=== PATIENT | male | born 1985 | race Caucasian/White ===

== ENCOUNTER 2017-12-28 10:54 | Inpatient (IN) | payer OTHER ==
[2017-12-24 16:01] VITALS: BMI 22.6
[2017-12-28] MEDS ORDERED: ROCURONIUM BROMIDE 50 MG/5 ML VIAL ONE ×2 (15:59)
[2017-12-28] MEDS ORDERED: PROPOFOL 20 ML ONE ×10 (15:59)
[2017-12-28] MEDS ORDERED: MIDAZOLAM HCL 2 MG/2 ML SINGLE DOSE VIAL ONE (15:59)
[2017-12-28] MEDS ORDERED: fentaNYL CITRATE 250 MCG/5 ML VIAL ONE ×3 (16:00→20:20)
[2017-12-28] MEDS ORDERED: ceFAZolin SODIUM 1 GM VIAL IVPB ONE ×2 (16:45→17:30)
[2017-12-28] MEDS ORDERED: VANCOMYCIN 1,000 MG VIAL (RESTRICTED TO ID ONLY) IVPB ONE (16:45)
[2017-12-28] MEDS ORDERED: BENZOIN/ALOE VERA/STORAX/TOLU 58 ML BOTTLE ONE (16:51)
[2017-12-28] MEDS ORDERED: TRANEXAMIC ACID 1000 MG/10 ML VIAL ONE ×3 (16:56→17:47)
[2017-12-28] MEDS ORDERED: THROMBIN (BOVINE) 5,000 UNIT VIAL TP ONE (17:35)
[2017-12-28] MEDS ORDERED: HEPARIN NA (PORCINE) 5,000 UNITS/ML 1ML VIAL ONE (17:35)
[2017-12-28] MEDS ORDERED: DEXAMETHASONE SOD PHOSPHATE 4 MG/1 ML VIAL ONE (18:33)
[2017-12-28] MEDS ORDERED: KETOROLAC TROMETHAMINE 30 MG/1 ML VIAL ONE (18:33)
[2017-12-28] MEDS ORDERED: ONDANSETRON 4 MG/2 ML VIAL ONE (18:33)
[2017-12-28] MEDS ORDERED: DESFLURANE GAS 240 ML BOTTLE IH ONE (19:45)
[2017-12-28] MEDS ORDERED: NEOSTIGMINE METHYLSULFATE 0.5 MG/ML - 10 ML MDV ONE (20:18)
[2017-12-28] MEDS ORDERED: GLYCOPYRROLATE 0.2 MG/1 ML VIAL ONE (20:18)
--- NOTE | 2017-12-28 20:56 | PN ---
Progress Note (short form) - Note Progress Note: 32M s/p L4, L5, S1 laminectomies, L4-5 & L5-S1 PLIF, L4-S1 PISF POD #0. -Admit to ICU post-op. -Pain control: WAREDRESSER; per anaesthesia team. -Mechanical DVT PPx. only: NELSY's, SCD's. -Incentive spirometry; aggressive pulmonary toilet. -PT/OT/Rehab, OOB. -WBAT B/L LE. -f/u drain output. -d/c Lira catheter when ambulating. -NPO until flatus. -Toshia-op abx X 24 hrs.: Ancef, Vanc. -Admit to care of medical hospitalist team. -Will follow. Asad Wilkinson MD (Orthopaedic Surgery).
[2017-12-28] MEDS ORDERED: ONDANSETRON 4 MG/2 ML VIAL IVPUSH PRN ×2 (20:57→21:13)
[2017-12-28] MEDS ORDERED: diazePAM CARPU-JECT 10 MG/2 ML DISP.SYRIN IVPUSH PRN (20:57)
[2017-12-28] MEDS ORDERED: LACTATED RINGERS SOLUTION 1,000 ML IV SCH (21:00)
--- NOTE | 2017-12-28 21:12 | OP ---
Operative Note - Note: Operative Date: 12/28/17 Pre-Operative Diagnosis: L4-L5, L5-S1 spinal stenosis Operation: 1. L4, L5, S1 laminectomies. 2. L4-L5, L5-S1 PLIF. 3. L4-L5, L5-S1 PISF Post-Operative Diagnosis: Same as Pre-op Surgeon: Hollis Wilkinson Medical Claims Examiner: Asad Wilkinson (Co-Surgeon) Anesthesiologist/SIDE DOOR WORKER: Davy Garza Anesthesia: General Specimens Removed: Bone, soft tissue, disc Estimated Blood Loss (mls): 1,200 Drains & Tubes with Location: 1 x superficial HemoVac Blood Volume Replaced (mls): 450 (Cell Saver) Fluid Volume Replaced (mls): 2,300 (Crystalloid) Operative Report Dictated: Yes
[2017-12-28] MEDS ORDERED: oxyCODONE HCL 5 MG TABLET PO PRN (21:13)
--- NOTE | 2017-12-28 21:16 | PN ---
Teaching Attending Note Name of Resident: Liv Orr ATTENDING PHYSICIAN STATEMENT I saw and evaluated the patient. I reviewed the resident's note and discussed the case with the resident. I agree with the resident's findings and plan as documented. SUBJECTIVE: 32 yo M with pmhx childhood Asthma of who presented for L4, L5, S1, Laminectomies, L4-L5 , L5-S1 PLIF, L5-S1 PISF. Pt. States post-sx he feels ok. Denies any current pain. Able to feel and move his feet/legs. Has not had flatus yet. Denies any Nause, vomiting, or diarrhea. No chest pain, pressure or shortness of breath. OBJECTIVE: Physical: VS: Vital Signs Period Temp Pulse Resp BP Sys/Piedra Pulse Ox Last 24 Hr 98.0 F 59 16 105/69 99 GEN: NAD, Resting in bed, AA0X3 HEENT: NCAT, PERRL, Throat without erythema or exudates CARD: RRR S1, S2 RESP: CTAN ABD: BSx4, NTD to palpation EXT:- C/C/E LABS- PENDING EKG: ASSESSMENT AND PLAN: 32 yo M with Pmhx of 1.) L4, L5, S1 laminectomies. 2. L4-L5, L5-S1 PLIF. 3. L4-L5, L5-S1 PISF POD # 0 - NPO until Flatus - Avoid NSAIDS - Lira, until mobilized - Pain Mngt per Anesthesia - Check CMP, CBC - Abx per Sx 2.) Dvt Ppx - SCDS only for 72 hrs Accepted to ICU CC Time 35 minutes
--- NOTE | 2017-12-28 21:21 | OP ---
DATE OF OPERATION: 12/28/2017 SURGEON: Hollis Wilkinson MD CO-SURGEON: Asad Wilkinson MD PREOPERATIVE DIAGNOSES: L4-L5, L5-S1 disk prolapse disease with stenosis and segmental instability. POSTOPERATIVE DIAGNOSES: L4-L5, L5-S1 disk prolapse disease with stenosis and segmental instability. OPERATION PERFORMED: 1. Laminectomy, L4-L5. 2. Undercutting facetectomy, L4-L5. 3. Anderson-Chung osteotomy, L3, L4, L5. 4. Posterior lumbar interbody fusion, L4-L5, L5-S1. 5. Pedicle screw instrumentation, L4, L5, S1. 6. Posterolateral arthrodesis, L4, L5, S1. 7. Use of bone marrow concentrate combined with autologous and allograft bone. 8. Use of intraoperative fluoroscopy and intraoperative neuromonitoring. 9. Complex wound closure, 15 cm. ANESTHESIA: General. ANTIBIOTICS GIVEN: 1 g vancomycin preoperatively, 1 g Kefzol given intraoperatively. PROCEDURE: The patient was correctly identified, brought in the operating room. The lumbar spine was prepped and window-draped in the lumbar spine. Prepping was with Betadine scrub solution and wiped off with alcohol and DuraPrep applied. Lateral fluoroscopic x-ray verified the position of the skin incision. Midline incision was utilized. The skin was opened appropriately. The dissection was taken to the tip of the spinous process of L3 to S1. Subperiosteal dissection performed, exposing the lamina over the facet joints out to the tip of the transverse processes both left and right and side of L4, L5, S1; the ala of the sacrum being exposed clearly. The lamina of L4 and L5 were resected using Leksell rongeurs and Kerrison upcuts. The lateral wall of the vertebral canal was imploded inwards. This brought about complete freeing and wide decompression of the L4, L5, S1 nerve roots completely, both left and right and side. This component of the operation was performed by Asad Wilkinson. The posterior lumbar interbody fusion of L4-L5, L5-S1 were performed by Hollis Wilkinson and this consisted of the following: Retraction of the theca after dealing with the epidural veins with bipolar Bovie, retracting the theca from [id number], exposing appropriately these elements. Once this had been performed, the disks were resected completely using leona as well as serrated curettes and pituitary rongeurs and excising the annulus appropriately on the right-hand side. The interbody spacers were packed with autologous bone graft. This was graft milled from all elements posteriorly that had been removed; these were the laminae. The cages measured size 9 at L5- S1 and size 11 at L4-L5. These were TETRAfuse cages. Solid fixation was achieved. Verification with lateral fluoroscopic x-ray revealed excellent reconstitution of disk heights. Each disk space was now packed with bone graft as well as the appropriate cage. Pedicle screws of L4, L5, S1 were performed. This was with the use of drilling each pedicle with 4.5 drill bit. Each drill hole was tested with a ball-tip feeler probe. Each screw was inserted, measuring 40 x 6.5, and each screw tested with intraoperative neuromonitoring and found to be well-above safety parameters usually performed; that is well-above 15 mA at each screw. Rods were contoured and appropriately affixed solidly into position with the appropriate torque device tightening the device onto the screw heads. The posterolateral arthrodesis was completed by placing bone in the transverse plane from L4, L5, S1. This was bone mixed with CD-34 cells, which is from bone marrow aspirate concentrate from the left posterior ilium, 60 mL having been harvested and spun down for the CD-34 cells. A Anderson-Chung osteotomy at L4-L5 facilitated the maintenance of lordosis. No complications. The wounds were thoroughly lavaged. A complex wound closure with muscle 1 Vicryl, fascia 1 Vicryl, subcutaneous 1 and 2-0 Vicryl in separate layers, and then 3-0 Monocryl and Steri-Strips to the wound. Blood loss was approximately 1 L; 500 mL of blood was given back with IV Cell Saver. Patient transferred to the ICU. MD BRO Payne/[id number] MTDD
[2017-12-28] MEDS ORDERED: HYDROmorphone *PCA* 6MG/30ML DISP.SYRIN PCA ONE (21:30)
--- NOTE | 2017-12-28 21:42 | HP ---
CHIEF COMPLAINT: back pain PCP: HISTORY OF PRESENT ILLNESS: 32 yo M with significant PMHx of asthma as a child presents for spinal surgery. He is POD#0 s/p laminectomy and spinal fusion. He was injured at work and has made decision to undergo surgery with Dr. Wilkinson. Denies CP,CHÁVEZ, SOB, abdominal pain, nausea or vomiting. Recent Travel: Denies PAST MEDICAL HISTORY:childhood asthma PAST SURGICAL HISTORY:tonsillectomy Social History: Smoking:current smoker 7 cigs/day with 5pack year history. Alcohol:Denies Drugs: frequent smoker of marijuana Family History: Allergies No Known Allergies Allergy (Verified 12/24/17 16:01) HOME MEDICATIONS: Home Medications Medication Instructions Recorded Diazepam [Valium] 5 mg PO HS 12/24/17 Oxycodone HCl/Acetaminophen 1 each PO Q4H PRN 12/24/17 [Percocet 10-325 mg Tablet] REVIEW OF SYSTEMS CONSTITUTIONAL: Absent: fever, chills, diaphoresis, generalized weakness, malaise, loss of appetite, weight change HEENT: Absent: rhinorrhea, nasal congestion, throat pain, throat swelling, difficulty swallowing, mouth swelling, ear pain, eye pain, visual changes CARDIOVASCULAR: Absent: chest pain, syncope, palpitations, irregular heart rate, lightheadedness , peripheral edema RESPIRATORY: Absent: cough, shortness of breath, dyspnea with exertion, orthopnea, wheezing, stridor, hemoptysis GASTROINTESTINAL: Absent: abdominal pain, abdominal distension, nausea, vomiting, diarrhea, constipation, melena, hematochezia GENITOURINARY: Absent: dysuria, frequency, urgency, hesitancy, hematuria, flank pain, genital pain MUSCULOSKELETAL: +back pain Absent: myalgia, arthralgia, joint swelling, neck pain SKIN: Absent: rash, itching, pallor HEMATOLOGIC/IMMUNOLOGIC: Absent: easy bleeding, easy bruising, lymphadenopathy, frequent infections ENDOCRINE: Absent: unexplained weight gain, unexplained weight loss, heat intolerance, cold intolerance NEUROLOGIC: Absent: headache, focal weakness or paresthesias, dizziness, unsteady gait, seizure, mental status changes, bladder or bowel incontinence PSYCHIATRIC: Absent: anxiety, depression, suicidal or homicidal ideation, hallucinations. PHYSICAL EXAMINATION Vital Signs - 24 hr 12/28/17 12/28/17 11:32 11:33 Temperature 98.0 F Pulse Rate 59 L Respiratory 16 Rate Blood Pressure 105/69 O2 Sat by Pulse 99 Oximetry (%) GENERAL: AAOx3, NAD HEAD: NC/AT EYES: PERLLA, EOMI, anicteric sclera. EARS, NOSE, THROAT: Moist mucous membranes. NECK: supple, No jvd LUNGS: CTAB, No wheezing or rales. HEART: RRR, NL S1S2, No M/G/R ABDOMEN: Soft, NT/ND, NL BS LOWER EXTREMITIES: 2+ pulses, warm, well-perfused. No calf tenderness. No peripheral edema. NEUROLOGICAL: Cranial nerves II-XII intact. Normal speech. Bilateral LE neurovascularly intact. PSYCHIATRIC: Cooperative. Good eye contact. Appropriate mood and affect. SKIN: surgical site bandage appears clean, dry and intact. Connor drain w/ small amount of sanguineous drainage. Laboratory Results - last 24 hr 12/28/17 12/28/17 11:08 12:28 Blood Type O POSITIVE O POSITIVE Antibody Screen Negative ASSESSMENT/PLAN: 32M POD #0 s/p L4, L5, S1 laminectomies, L4-5 & L5-S1 PLIF, L4-S1 PISF admitted to ICU. Problem List - Problem (1) S/P laminectomy with spinal fusion Assessment/Plan: L4, L5, S1 laminectomies, L4-5 & L5-S1 PLIF, L4-S1 PISF * Admit to ICU post-op. * Pain control: SYNTHETIC FILAMENT SPINNER; per anaesthesia team. * Mechanical DVT PPx. only: NELSY's, SCD's. * Incentive spirometry; aggressive pulmonary toilet. * PT/OT/Rehab, OOB. * WBAT B/L LE. * f/u drain output. * d/c Lira catheter when ambulating. * NPO until flatus. * Toshia-op abx X 24 hrs.: Anya Lowery. Visit type - Emergency Visit Emergency Visit: Yes ED Registration Date: 12/28/17 Care time: The patient presented to the Emergency Department on the above date and was hospitalized for further evaluation of their emergent condition. - New Patient This patient is new to me today: Yes Date on this admission: 12/29/17 - Critical Care Critical Care patient: Yes Total Critical Care Time (in minutes): 33 Critical Care Statement: The care of this patient involved high complexity decision making to prevent further life threatening deterioration of the patient 's condition and/or to evaluate & treat vital organ system(s) failure or risk of failure. Hospitalist Screening - Colonoscopy Questionnaire Colonoscopy Questionnaire: Colonoscopy Questionnaire - Patient: 50 - 75 years old and never had a screening colonoscopy: No History of colon or rectal polyps, or CA: No History of IBD, Crohn's disease or UC: No History of abdominal radiation therapy as a child: No - Relative: 1 with colon or rectal CA, or polyps at age 60 or younger: No Colon or rectal CA diagnosed at age 45 or younger: No Multiple relatives with colon or rectal CA: No - Outcome: Screening Result: Negative Screen
[2017-12-28] MEDS ORDERED: ACETAMINOPHEN INJECTION 100 ML IVPB ONE (21:44)
[2017-12-28] MEDS: ACETAMINOPHEN 1000 MG/100 ML VIAL (NON FORMULARY) IVPB SCH (21:45)
[2017-12-28] MEDS ORDERED: MEPERIDINE HCL CARPU-JECT 25 MG/1 ML DISP.SYRIN IM ONE (21:56)
[2017-12-28] MEDS: LACTATED RINGERS SOLUTION 1,000 ML IV SCH (22:00)
[2017-12-28] MEDS: HYDROmorphone *PCA* 10MG/50ML DISP.SYRIN PCA SCH (22:00)
--- NOTE | 2017-12-28 23:03 | CONSULT ---
Consult Consult Specialty:: Pulm/CCM Reason for Consultation:: L4-s1 decompression and fusion. - History of Present Illness Chief Complaint: back pain History of Present Illness: This is a 32 yo man active tobacco w/ Asthma, lower back pain w/ right sided numbness now POD #0: L4-s1 decompression and fusion. Transferred to the ICU Post operatively. In the ICU he is awake and alert denies: CHÁVEZ/CP/SOB/n/v/ numbness mild pain at surgical site. On exam [place] drain w/ small amount of sanguineous drainage noted. - History Source History Provided By: Patient Limitations to Obtaining History: No Limitations - Past Medical History Pulmonary: Yes: Asthma (childhood ) Psych: Yes: Depression Musculoskeletal: Yes: Chronic low back pain - Alcohol/Substance Use Hx Alcohol Use: No - Smoking History Smoking history: Current every day smoker (1/3 of a pack per day) Aproximately how many cigarettes per day: 8 Home Medications - Allergies Allergies/Adverse Reactions: Allergies Allergy/AdvReac Type Severity Reaction Status Date / Time No Known Allergies Allergy Verified 12/24/17 16:01 - Home Medications Home Medications: Ambulatory Orders Diazepam [Valium] 5 mg PO HS 12/24/17 Oxycodone HCl/Acetaminophen [Percocet 10-325 mg Tablet] 1 each PO Q4H PRN Family Disease History - Family Disease History Family History: Unremarkable Review of Systems - Review of Systems Constitutional: reports: No Symptoms Cardiovascular: reports: No Symptoms Respiratory: reports: No Symptoms Musculoskeletal: reports: Back Pain Physical Exam Vital Signs: Vital Signs Temperature 98.7 F 12/28/17 21:11 Pulse Rate 59 L 12/28/17 22:15 Respiratory Rate 11 L 12/28/17 22:15 Blood Pressure 106/56 12/28/17 22:15 O2 Sat by Pulse Oximetry (%) 100 12/28/17 22:15 Constitutional: Yes: Well Nourished, No Distress, Calm Eyes: Yes: EOM Intact HENT: Yes: Normocephalic Cardiovascular: Yes: Regular Rate and Rhythm, S1, S2 Respiratory: Yes: CTA Bilaterally Gastrointestinal: Yes: Normal Bowel Sounds, Soft Musculoskeletal: Yes: Other (Connor drain in place small sang drainage) Edema: No Wound/Incision: Yes: Clean/Dry Neurological: Yes: Alert, Oriented Psychiatric: Yes: Alert, Oriented Labs: No labs Problem List - Problems (1) S/P laminectomy with spinal fusion Code(s): Z98.1 - ARTHRODESIS STATUS (2) Asthma Code(s): J45.909 - UNSPECIFIED ASTHMA, UNCOMPLICATED Assessment/Plan a/p: 32yo man w/ asthma, depression lower back pain w/ numbness on right side now POD #0: L4, L5, S1 laminectomy -pain control -anxiolisis prn -bowel regimen -advance activity per surgery -NPO until flatus -02 for sat >90% -nicoderm patch -Albuterol prn -Incentive spirometry -early PT/OT -trend Hgb post op w/ normal transfusion thresholds -monitor surgical drainage -glucose control -SCD for DVT prophylaxis until chemoprophylaxis ok by surgery Carin RIZO Pulm/CCM CCT: 35m
[2017-12-28] MEDS: CEFAZOLIN 1 GM/D5W 1 GM/50 ML BAG IVPB SCH (23:31)
[2017-12-29] MEDS ORDERED: LORazepam 2 MG/ML SDV VIAL IVPUSH PRN (02:08)
[2017-12-29] MEDS ORDERED: LORazepam 2 MG/ML SDV VIAL IVPUSH ONE (02:15)
[2017-12-29] MEDS: ACETAMINOPHEN 1000 MG/100 ML VIAL (NON FORMULARY) IVPB SCH (04:08)
[2017-12-29] MEDS ORDERED: VANCOMYCIN 1 GRAM (PRE-DOCKED) 1,000 MG/250 ML BAG IVPB ONE (05:00)
[2017-12-29] MEDS ORDERED: VANCOMYCIN 1,000 MG in DEXTROSE 5%-WATER - 250 ML IVPB ONE (05:00)
[2017-12-29] MEDS: CEFAZOLIN 1 GM/D5W 1 GM/50 ML BAG IVPB SCH (06:47)
[2017-12-29] MEDS ORDERED: HYDROmorphone *PCA* 6MG/30ML DISP.SYRIN PCA ONE (06:58)
[2017-12-29] MEDS: HYDROmorphone *PCA* 10MG/50ML DISP.SYRIN PCA SCH ×2 (07:03→21:36)
[2017-12-29 07:07] LABS: HEMATOCRIT 35.3 % (35.4-49); MEAN CELL VOLUME 88.1 fl (80-96); MEAN PLT VOLUME 7.6 fl (7.5-11.1); PLATELET COUNT 242 K/MM3 (134-434); RBC 4.01 M/mm3 (4.00-5.60); WHITE BLOOD COUNT 17.3 K/mm3 (4.0-10.0)
[2017-12-29 07:20] LABS: CHLORIDE 102 mmol/L (98-107); POTASSIUM 4.5 mmol/L (3.5-5.1); SODIUM 140 mmol/L (136-145)
[2017-12-29 07:25] LABS: ANION GAP 9 (8-16); BLOOD UREA NITROGEN 12 mg/dL (7-18); CALCIUM 8.2 mg/dL (8.5-10.1); CO2 29 mmol/L (21-32); CREATININE 0.6 mg/dL (0.7-1.3); GLUCOSE,RANDOM 129 mg/dL (74-106)
[2017-12-29] MEDS: NICOTINE 14 MG/24 HOURS TOPICAL PATCH TD SCH (11:38)
--- NOTE | 2017-12-29 12:09 | PN ---
Teaching Attending Note Name of Resident: Jamshid Encinas ATTENDING PHYSICIAN STATEMENT I saw and evaluated the patient. I reviewed the resident's note and discussed the case with the resident. I agree with the resident's findings and plan as documented. SUBJECTIVE: Pt seen and examined in the ICU. States pain controlled. No chest pain or shortness of breath. No nausea or vomiting. No flatus or bowel movements. OBJECTIVE: Last Vital Signs Temp Pulse Resp BP Pulse Ox 99.2 F 58 L 16 112/66 100 12/29/17 10:00 12/29/17 11:59 12/29/17 11:59 12/29/17 11:59 12/29/17 09:00 Intake & Output 12/26/17 12/27/17 12/28/17 12/29/17 23:59 23:59 23:59 23:59 Intake Total 1000 950 Output Total 1900 400 Balance -900 550 Weight 64.212 kg Gen: NAD at rest Heart: RRR Lung: decreased breath sounds at the bases Abd: soft, nontender Ext: no edema CBC, BMP 12/29/17 06:13 12/29/17 06:13 Active Medications Hydromorphone HCl (Dilaudid Information Systems Professor -) 10 mg HERB DOCTOR HERB DOCTOR KAMI PRN Reason: Protocol Stop: 01/04/18 21:29 Last Admin: 12/29/17 07:03 Dose: 10 mg Lactated Ringer's (Lactated Ringers Solution) 1,000 mls @ 75 mls/hr IV ASDIR [facility] Last Admin: 12/28/17 22:00 Dose: 50 mls Nicotine (Nicoderm Patch -) 14 mg TD DAILY [facility] Last Admin: 12/29/17 11:38 Dose: 14 mg Ondansetron HCl (Zofran Injection) 4 mg IVPUSH Q6H PRN PRN Reason: NAUSEA AND/OR VOMITING Last Admin: 12/29/17 11:38 Dose: 4 mg Ondansetron HCl (Zofran Injection) 4 mg IVPUSH Q6H PRN PRN Reason: NAUSEA AND/OR VOMITING Oxycodone HCl (Roxicodone -) 10 mg PO Q4H PRN PRN Reason: PAIN LEVEL 6-10 Stop: 12/29/17 21:12 Last Admin: 12/29/17 09:17 Dose: 10 mg Promethazine HCl (Phenergan Injection -) 12.5 mg IVPUSH Q6H PRN PRN Reason: NAUSEA-FOR RESCUE AFTER 15 MIN Senna (Senna -) 1 tab PO HS KAMI ASSESSMENT AND PLAN: Lumbar Spinal Stenosis s/p L4-S1 Laminectomies/Fusions Asthma Smoker - pain control - incentive spirometry - bowel regimen - rehab/PT - monitor drain output - monitor H/H - activity/dennis/PO per surgery - mechanical DVT prophylaxis
--- NOTE | 2017-12-29 13:05 | PN ---
Physical Exam: SUBJECTIVE: Patient seen and examined No acute events overnight. 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 He denies chest pain, SOB, abdominal pain, n/v, and passing flatus. OBJECTIVE: Vital Signs Period Temp Pulse Resp BP Sys/Piedra Pulse Ox Last 24 Hr 98.1 F-99.2 F 54-83 10-17 90-129/55-98 95-100 GENERAL: The patient is awake, alert, and fully oriented, in no acute distress. HEENT: NC, AT LUNGS: Breath sounds equal, clear to auscultation bilaterally, no wheezes, no crackles, no accessory muscle use. HEART: Regular rate and rhythm, S1, S2 without murmur, rub or gallop. ABDOMEN: Soft, nontender, nondistended, normoactive bowel sounds, no guarding, no rebound, no hepatosplenomegaly, no masses. EXTREMITIES: 2+ pulses, warm, well-perfused, no edema. NEUROLOGICAL: CN 2-12 intact, sensory function in b/l LE intact, strength difficult to assess in legs due to pain Laboratory Results - last 24 hr 12/28/17 12/29/17 12/29/17 12:28 06:13 06:13 WBC 17.3 H RBC 4.01 Hgb 12.0 Hct 35.3 L MCV 88.1 MCH 30.0 MCHC 34.0 RDW 13.0 Plt Count 242 MPV 7.6 Sodium 140 Potassium 4.5 Chloride 102 Carbon Dioxide 29 Anion Gap 9 BUN 12 Creatinine 0.6 L Random Glucose 129 H Calcium 8.2 L Blood Type O POSITIVE Active Medications Generic Name Dose Route Start Last Admin Trade Name Freq PRN Reason Stop Dose Admin Hydromorphone HCl 10 mg 12/28/17 21:30 12/29/17 07:03 Dilaudid Taxi Proprietor - NURSES' AIDE 01/04/18 21:29 10 mg NURSES' AIDE KAMI Administration Protocol Lactated Ringer's 1,000 mls @ 75 mls/hr 12/28/17 21:15 12/28/17 22:00 Lactated Ringers Solution IV 50 mls ASDIR KAMI Administration Nicotine 14 mg 12/29/17 10:00 12/29/17 11:38 Nicoderm Patch - TD 14 mg DAILY KAMI Administration Ondansetron HCl 4 mg 12/28/17 20:57 12/29/17 11:38 Zofran Injection IVPUSH 4 mg Q6H PRN Administration NAUSEA AND/OR VOMITING Ondansetron HCl 4 mg 12/28/17 21:13 Zofran Injection IVPUSH Q6H PRN NAUSEA AND/OR VOMITING Oxycodone HCl 10 mg 12/28/17 21:13 12/29/17 09:17 Roxicodone - PO 12/29/17 21:12 10 mg Q4H PRN Administration PAIN LEVEL 6-10 Promethazine HCl 12.5 mg 12/28/17 21:13 Phenergan Injection - IVPUSH Q6H PRN NAUSEA-FOR RESCUE AFTER 15 MIN Senna 1 tab 12/29/17 22:00 Senna - PO HS [facility] [place] ASSESSMENT/PLAN: 32M w/ hx of asthma and back pain, now POD #1 s/p L4, L5, S1 laminectomies, L4- 5 & L5-S1 PLIF, L4-S1 PISF. Neuro #s/p laminectomies -pain control: NURSES' AIDE and oxycodone PRN -ancef and vanc for 24hrs -incentive spirometer -OOB as tolerated -PT -monitor daniel drain output -d/c dennis once ambulating -NPO until passing flatus -phenergan and zofran PRN GI -senna Psych #tobacco use -nicotine patch FEN/ppx -LR @ 75 -electrolytes wnl -NPO until passing flatus -no GI ppx -SCDs Case discussed with attending, Dr. Courtney. -Jamshid Encinas MD PGY1 ICU Team Visit type - Emergency Visit Emergency Visit: Yes ED Registration Date: 12/28/17 Care time: The patient presented to the Emergency Department on the above date and was hospitalized for further evaluation of their emergent condition. - New Patient This patient is new to me today: Yes Date on this admission: 12/29/17 - Critical Care Critical Care patient: Yes Total Critical Care Time (in minutes): 35 Critical Care Statement: The care of this patient involved high complexity decision making to prevent further life threatening deterioration of the patient 's condition and/or to evaluate & treat vital organ system(s) failure or risk of failure.
--- NOTE | 2017-12-29 14:48 | PN ---
Progress Note (short form) - Note Progress Note: Post op day#1.S/p L4-L5 Posterior decompression with instrumentation and fusion under GA uneventful.P76,BP 108/73 and Spo2 98% on RA.Patient stable and and Neurontin and will f/u tomorrow. 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
--- NOTE | 2017-12-29 14:53 | PN ---
Teaching Attending Note Name of Resident: Joe Santos ATTENDING PHYSICIAN STATEMENT I saw and evaluated the patient. I reviewed the resident's note and discussed the case with the resident. I agree with the resident's findings and plan as documented. SUBJECTIVE: lower back pain. no radiation to legs. has numbness in feet . reports lifting a heavy box at work in February, ad since then had Lower back pain with radiation to b/l Lower extremities and numbness in LE . now he denies any SOBor CP OBJECTIVE: NAD CV: RRR Lungs: CTAB ext: no edema Neuro of LE : strength 3/5 in hip flexion b/l( limited by pain), knee flexion /extension and ankle dorsiflexion/plantar flexion 5/5 . reflexes 2+ knee jerk b/l . sensatio to light touch is decreased at R toes. 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
[2017-12-29] MEDS: ACETAMINOPHEN 1000 MG/100 ML VIAL (NON FORMULARY) IVPB PRN (19:06)
--- NOTE | 2017-12-29 20:22 | PN ---
Progress Note (short form) - Note Progress Note: Patient reports sharp left sided chest pain that started 30 minutes ago and has been constant. Patient states its worse when he takes a deep breath in with no alleviating factors. Otherwise, patient denies shortness of breath, palpitations , headaches, dizziness, acute vision changes, vomiting. VITALS: BP: 105/62 HR: 86 02 Sat: 100% RA temp: 101.2F RR: 14 PHYSICAL EXAM: LUNGS: CTA bilaterally HEART: RRR, No murmurs, rubs or gallops ABDOMEN: Soft, nontender, hyperactive bowel sounds, no guarding or rebound. EXTREMITIES: No peripheral edema ASSESSMENT and PLAN: -Patient likely has pleuritic chest pain/Costochondritis. Low suspicion for cardiac etiology but will need to exclude. -Stat EKG ordered and revealed NSR with no ST-T changes -Cardiac enzymes ordered -Tylenol PRN ordered
--- NOTE | 2017-12-29 21:04 | PN ---
<Joe Santos - Last Filed: 12/29/17 20:54> Physical Exam: SUBJECTIVE: Patient seen and examined at bedside. Patient lying in bed in NAD. Pain controlled. OBJECTIVE: Vital Signs Period Temp Pulse Resp BP Sys/Piedra Pulse Ox Last 24 Hr 98.1 F-101.2 F 54-86 10-19 90-129/55-98 95-100 GENERAL: The patient is awake, alert, and fully oriented, in no acute distress. NECK: Trachea midline, full range of motion, supple. LUNGS: Breath sounds equal, clear to auscultation bilaterally, no wheezes, no crackles, no accessory muscle use. HEART: Regular rate and rhythm, S1, S2 without murmur, rub or gallop. ABDOMEN: Soft, nontender, nondistended, normoactive bowel sounds, no guarding, no rebound, no hepatosplenomegaly, no masses. EXTREMITIES: 2+ pulses, warm, well-perfused, no edema. NEUROLOGICAL: Cranial nerves II through X grossly intact. Normal speech, gait not observed. 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 Cannot move lower limbs at hip 2/2 pain. PSYCH: Normal mood, normal affect. SKIN: Warm, dry, normal turgor, no rashes or lesions noted Laboratory Results - last 24 hr 12/29/17 12/29/17 06:13 06:13 WBC 17.3 H RBC 4.01 Hgb 12.0 Hct 35.3 L MCV 88.1 MCH 30.0 MCHC 34.0 RDW 13.0 Plt Count 242 MPV 7.6 Sodium 140 Potassium 4.5 Chloride 102 Carbon Dioxide 29 Anion Gap 9 BUN 12 Creatinine 0.6 L Random Glucose 129 H Calcium 8.2 L Active Medications Generic Name Dose Route Start Last Admin Trade Name Freq PRN Reason Stop Dose Admin Acetaminophen 1,000 mg 12/29/17 14:42 12/29/17 19:06 Ofirmev Injection - IVPB 1,000 mg Q6H PRN Administration PAIN LEVEL 6-10 Gabapentin 300 mg 12/29/17 22:00 Neurontin - PO BID KAMI Hydromorphone HCl 10 mg 12/28/17 21:30 12/29/17 07:03 Dilaudid Government Contracts Manager - COAL SCREENER 01/04/18 21:29 10 mg COAL SCREENER KAMI Administration Protocol Lactated Ringer's 1,000 mls @ 75 mls/hr 12/28/17 21:15 12/28/17 22:00 Lactated Ringers Solution IV 50 mls ASDIR KAMI Administration Nicotine 14 mg 12/29/17 10:00 12/29/17 11:38 Nicoderm Patch - TD 14 mg DAILY KAMI Administration Ondansetron HCl 4 mg 12/28/17 20:57 12/29/17 11:38 Zofran Injection IVPUSH 4 mg Q6H PRN Administration NAUSEA AND/OR VOMITING Ondansetron HCl 4 mg 12/28/17 21:13 Zofran Injection IVPUSH Q6H PRN NAUSEA AND/OR VOMITING Oxycodone HCl 10 mg 12/28/17 21:13 12/29/17 09:17 Roxicodone - PO 12/29/17 21:12 10 mg Q4H PRN Administration PAIN LEVEL 6-10 Promethazine HCl 12.5 mg 12/28/17 21:13 Phenergan Injection - IVPUSH Q6H PRN NAUSEA-FOR RESCUE AFTER 15 MIN Senna 1 tab 12/29/17 22:00 Senna - PO HS KAMI ASSESSMENT/PLAN: This is a 32 yo m w/ no PMH who is POD 1 from L4, L5, S1 laminectomies and L4-5 and L5-S1 instrumented fusion. #POD1 spinal surgery w/ Dr. Wilkinson -management as per Dr. Wilkinson: -Pain control w/ COAL SCREENER as per anaesthesia team. -Mechanical DVT PPx. only: NELSY's, SCD's. -Incentive spirometry -pulmonary toilet. -PT and rehab after 72 hrs bed rest -drain w/ minimal output. -d/c Lira once ambulating. -NPO until flatus. -Ancef, Vanco in perioperative period #FEN -no fluids indicated -monitor lytes -NPO until flatus #Dispo -admit to ICU Visit type - Emergency Visit Emergency Visit: Yes ED Registration Date: 12/28/17 Care time: The patient presented to the Emergency Department on the above date and was hospitalized for further evaluation of their emergent condition. - New Patient This patient is new to me today: Yes Date on this admission: 12/29/17 - Critical Care Critical Care patient: Yes Total Critical Care Time (in minutes): 45 Critical Care Statement: The care of this patient involved high complexity decision making to prevent further life threatening deterioration of the patient 's condition and/or to evaluate & treat vital organ system(s) failure or risk of failure. <Ashley Block - Last Filed: 12/30/17 19:46> Physical Exam: Patient seen and examined. Patient POD#2 Spinal surgery with . Incentive spirometer. Vital Signs Temperature 99.3 F 12/30/17 14:00 Pulse Rate 114 H 12/30/17 17:00 Respiratory Rate 14 12/30/17 17:00 Blood Pressure 119/76 12/30/17 17:00 O2 Sat by Pulse Oximetry (%) 100 12/30/17 09:00 CBCD WBC 15.3 K/mm3 (4.0-10.0) H 12/30/17 06:20 RBC 3.76 M/mm3 (4.00-5.60) L 12/30/17 06:20 Hgb 11.2 GM/dL (11.7-16.9) L 12/30/17 06:20 Hct 33.0 % (35.4-49) L 12/30/17 06:20 MCV 87.8 fl (80-96) 12/30/17 06:20 MCHC 34.0 g/dl (32.0-35.9) 12/30/17 06:20 RDW 13.0 % (11.9-15.9) 12/30/17 06:20 Plt Count 240 K/MM3 (134-434) 12/30/17 06:20 MPV 7.9 fl (7.5-11.1) 12/30/17 06:20 CMP Sodium 138 mmol/L (136-145) 12/30/17 06:20 Potassium 3.8 mmol/L (3.5-5.1) 12/30/17 06:20 Chloride 104 mmol/L (98-107) 12/30/17 06:20 Carbon Dioxide 28 mmol/L (21-32) 12/30/17 06:20 Anion Gap 6 (8-16) L 12/30/17 06:20 BUN 6 mg/dL (7-18) L D 12/30/17 06:20 Creatinine 0.6 mg/dL (0.7-1.3) L 12/30/17 06:20 Creat Clearance w eGFR > 60 (>60) 12/30/17 06:20 Random Glucose 100 mg/dL (74-106) D 12/30/17 06:20 Calcium 7.9 mg/dL (8.5-10.1) L 12/30/17 06:20 Total Bilirubin 1.4 mg/dL (0.2-1.0) H 12/30/17 06:20 AST 55 U/L (15-37) H 12/30/17 06:20 ALT 22 U/L (12-78) 12/30/17 06:20 Alkaline Phosphatase 74 U/L (45-117) 12/30/17 06:20 Total Protein 5.2 g/dl (6.4-8.2) L 12/30/17 06:20 Albumin 3.0 g/dl (3.4-5.0) L 12/30/17 06:20 CARDIAC ENZYMES Creatine Kinase 2530 IU/L (39-308) H 12/29/17 20:00 Troponin I < 0.02 ng/ml (0.00-0.05) 12/29/17 20:00 Current Medications Generic Name Dose Route Start Last Admin Trade Name Freq PRN Reason Stop Dose Admin Acetaminophen 1,000 mg 12/29/17 14:42 12/30/17 19:24 Ofirmev Injection - IVPB 1,000 mg Q6H PRN Administration PAIN LEVEL 6-10 Diazepam 5 mg 12/29/17 22:24 12/29/17 23:34 Valium - PO 5 mg TID PRN Administration BACK PAIN Gabapentin 300 mg 12/29/17 22:00 12/30/17 09:31 Neurontin - PO 300 mg BID KAMI Administration Lactated Ringer's 1,000 mls @ 75 mls/hr 12/28/17 21:15 12/29/17 21:37 Lactated Ringers Solution IV 75 mls/hr ASDIR KAMI Administration Nicotine 14 mg 12/29/17 10:00 12/30/17 09:31 Nicoderm Patch - TD 14 mg DAILY KAMI Administration Ondansetron HCl 4 mg 12/28/17 20:57 12/29/17 11:38 Zofran Injection IVPUSH 4 mg Q6H PRN Administration NAUSEA AND/OR VOMITING Ondansetron HCl 4 mg 12/28/17 21:13 Zofran Injection IVPUSH Q6H PRN NAUSEA AND/OR VOMITING Oxycodone HCl 5 mg 12/30/17 10:43 12/30/17 19:27 Roxicodone - PO 5 mg Q3H PRN Administration PAIN LEVEL 1-5 Oxycodone HCl 10 mg 12/30/17 10:43 Roxicodone - PO Q3H PRN PAIN LEVEL 6-10 Oxycodone HCl 10 mg 12/30/17 22:00 Oxycontin - PO 01/02/18 10:43 BID KAMI Promethazine HCl 12.5 mg 12/28/17 21:13 12/30/17 07:09 Phenergan Injection - IVPUSH 12.5 mg Q6H PRN Administration NAUSEA-FOR RESCUE AFTER 15 MIN Senna 1 tab 12/29/17 22:00 12/29/17 21:38 Senna - PO 1 tab HS [facility] Administration Home Medications Medication Instructions Recorded Diazepam [Valium] 5 mg PO HS 12/24/17 Oxycodone HCl/Acetaminophen 1 each PO Q4H PRN 12/24/17 [Percocet 10-325 mg Tablet]
[2017-12-29] MEDS: LACTATED RINGERS SOLUTION 1,000 ML IV SCH (21:37)
[2017-12-29] MEDS: GABAPENTIN 300 MG CAPSULE (FP) PO SCH (21:38)
[2017-12-29] MEDS: SENNOSIDES 8.6MG TABLET (FP) PO SCH (21:38)
[2017-12-29] MEDS: diazePAM 5 MG TABLET PO PRN (23:34)
[2017-12-30] MEDS ORDERED: HYDROmorphone *PCA* 6MG/30ML DISP.SYRIN PCA ONE ×2 (02:11→19:47)
[2017-12-30 06:35] LABS: BASO % 0.3 % (0-2.0); EOS % 0.2 % (0-4.5); HEMOGLOBIN 11.2 GM/dL (11.7-16.9); LYMPH % 14.2 % (8-40); MCH 29.8 pg (25.7-33.7); MEAN CELL VOLUME 87.8 fl (80-96); MEAN PLT VOLUME 7.9 fl (7.5-11.1); MONO % 11.5 % (3.8-10.2); NEUT % 73.8 % (42.8-82.8); PLATELET COUNT 240 K/MM3 (134-434); RBC 3.76 M/mm3 (4.00-5.60); WHITE BLOOD COUNT 15.3 K/mm3 (4.0-10.0)
[2017-12-30 06:54] LABS: ALK PHOS 74 U/L (45-117); ANION GAP 6 (8-16); BILIRUBIN,TOTAL 1.4 mg/dL (0.2-1.0); BLOOD UREA NITROGEN 6 mg/dL (7-18); CALCIUM 7.9 mg/dL (8.5-10.1); CHLORIDE 104 mmol/L (98-107); CO2 28 mmol/L (21-32); CREATININE 0.6 mg/dL (0.7-1.3); GLUCOSE,RANDOM 100 mg/dL (74-106); MAGNESIUM 1.9 mg/dL (1.8-2.4); PHOSPHOROUS 2.5 mg/dL (2.5-4.9); POTASSIUM 3.8 mmol/L (3.5-5.1); SGOT/AST 55 U/L (15-37); SGPT/ALT 22 U/L (12-78); SODIUM 138 mmol/L (136-145); TOT PROT 5.2 g/dl (6.4-8.2)
[2017-12-30] MEDS: PROMETHAZINE HCL 25 MG/1 ML VIAL IVPUSH PRN (07:09)
[2017-12-30] MEDS: GABAPENTIN 300 MG CAPSULE (FP) PO SCH ×2 (09:31→21:05)
[2017-12-30] MEDS: NICOTINE 14 MG/24 HOURS TOPICAL PATCH TD SCH (09:31)
[2017-12-30] MEDS: ACETAMINOPHEN 1000 MG/100 ML VIAL (NON FORMULARY) IVPB PRN ×2 (10:31→19:24)
--- NOTE | 2017-12-30 10:47 | PN ---
Progress Note (short form) - Note Progress Note: Anesthesiology Post-op/Pain Service POD #2 s/p lumbar fusion under GA with post-op HEAD OF BUSINESS DEVELOPMENT. Pt. resting comfortably in bed. He is tolerating PO intake well. Admits to pain which is controlled with HEAD OF BUSINESS DEVELOPMENT. Denies n/v. VSS. No other issues. 32 y.o. s/p lumbar fusion with post-op HEAD OF BUSINESS DEVELOPMENT, stable post-op course. D/w pt. re. d/c HEAD OF BUSINESS DEVELOPMENT and change to PO meds. The pt. is amenable to this. I have also d/w RN. Please contact Anesthesiology if further assistance is required.
--- NOTE | 2017-12-30 12:05 | PN ---
Teaching Attending Note Name of Resident: Jamshid Encinas ATTENDING PHYSICIAN STATEMENT I saw and evaluated the patient. I reviewed the resident's note and discussed the case with the resident. I agree with the resident's findings and plan as documented. SUBJECTIVE: Pt seen and examined in the ICU. Pain controlled. Overnight fevers. Denies cough , nausea or vomiting. No diarrhea. OBJECTIVE: Last Vital Signs Temp Pulse Resp BP Pulse Ox 101.5 F H 88 16 116/76 100 12/30/17 10:00 12/30/17 10:00 12/30/17 10:00 12/30/17 10:49 12/30/17 09:00 Intake & Output 12/27/17 12/28/17 12/29/17 12/30/17 23:59 23:59 23:59 23:59 Intake Total 1000 1550 900 Output Total 1900 1150 2300 Balance -900 400 -1400 Weight 64.212 kg 64.41 kg Gen: NAD at rest Heart: RRR Lung: decreased breath sounds at the bases Abd: soft, nontender Ext: no edema CBC, BMP 12/30/17 06:20 12/30/17 06:20 Active Medications Acetaminophen (Ofirmev Injection -) 1,000 mg IVPB Q6H PRN PRN Reason: PAIN LEVEL 6-10 Last Admin: 12/30/17 10:31 Dose: 1,000 mg Diazepam (Valium -) 5 mg PO TID PRN PRN Reason: BACK PAIN Last Admin: 12/29/17 23:34 Dose: 5 mg Gabapentin (Neurontin -) 300 mg PO BID [facility] Last Admin: 12/30/17 09:31 Dose: 300 mg Lactated Ringer's (Lactated Ringers Solution) 1,000 mls @ 75 mls/hr IV ASDIR [facility] Last Admin: 12/29/17 21:37 Dose: 75 mls/hr Nicotine (Nicoderm Patch -) 14 mg TD DAILY [facility] Last Admin: 12/30/17 09:31 Dose: 14 mg Ondansetron HCl (Zofran Injection) 4 mg IVPUSH Q6H PRN PRN Reason: NAUSEA AND/OR VOMITING Last Admin: 12/29/17 11:38 Dose: 4 mg Ondansetron HCl (Zofran Injection) 4 mg IVPUSH Q6H PRN PRN Reason: NAUSEA AND/OR VOMITING Oxycodone HCl (Roxicodone -) 5 mg PO Q3H PRN PRN Reason: PAIN LEVEL 1-5 Oxycodone HCl (Roxicodone -) 10 mg PO Q3H PRN PRN Reason: PAIN LEVEL 6-10 Oxycodone HCl (Oxycontin -) 10 mg PO BID [facility] Stop: 01/02/18 10:43 Promethazine HCl (Phenergan Injection -) 12.5 mg IVPUSH Q6H PRN PRN Reason: NAUSEA-FOR RESCUE AFTER 15 MIN Last Admin: 12/30/17 07:09 Dose: 12.5 mg Senna (Senna -) 1 tab PO [facility] Last Admin: 12/29/17 21:38 Dose: 1 tab ASSESSMENT AND PLAN: Lumbar Spinal Stenosis s/p L4-S1 Laminectomies/Fusions Asthma Smoker - pain control - incentive spirometry - bowel regimen - rehab/PT - monitor drain output - monitor H/H - activity/dennis/PO per surgery - mechanical DVT prophylaxis
[2017-12-30] MEDS: oxyCODONE HCL 5 MG TABLET PO PRN ×2 (12:55→19:27)
[2017-12-30 13:05] LABS: URINE APPEARANCE CLEAR; URINE BILIRUBIN NEGATIVE (<2.0 mg/dL); URINE BLOOD 2+ (NEGATIVE); URINE COLOR STRAW; URINE GLUCOSE (UA) NEGATIVE (NEGATIVE); URINE KETONE 1+ (NEGATIVE); URINE LEUK ESTERASE NEGATIVE (NEGATIVE); URINE NITRITE NEGATIVE (NEGATIVE); URINE PROTEIN NEGATIVE (NEGATIVE); URINE UROBILINOGEN NEGATIVE mg/dL (0.2-1.0)
--- NOTE | 2017-12-30 13:22 | PN ---
Physical Exam: SUBJECTIVE: Patient seen and examined Overnight, pt had episode of constant, left-sided, pleuritic chest pain that resolved with APAP. EKG and trops negative. Pt also spiked temp of 101.2. This am, pt reports improved chest pain, and decreased back pain. He denies SOB, abdominal pain, n/v, and dysuria. He endorses passing flatus. OBJECTIVE: Vital Signs Period Temp Pulse Resp BP Sys/Piedra Pulse Ox Last 24 Hr 99.1 F-101.5 F 60-111 14-20 104-121/62-77 100-100 GENERAL: The patient is awake, alert, and fully oriented, in no acute distress. HEENT: NC, AT LUNGS: Breath sounds equal, clear to auscultation bilaterally, no wheezes, no crackles, no accessory muscle use. HEART: Regular rate and rhythm, S1, S2 without murmur, rub or gallop. ABDOMEN: Soft, nontender, nondistended, normoactive bowel sounds, no guarding, no rebound, no hepatosplenomegaly, no masses. Back: no drainage present in daniel drain EXTREMITIES: 2+ pulses, warm, well-perfused, no edema. NEUROLOGICAL: CN 2-12 intact, sensory function in b/l LE intact, strength difficult to assess in legs due to pain Laboratory Results - last 24 hr 12/29/17 12/30/17 12/30/17 20:00 06:20 06:20 WBC 15.3 H RBC 3.76 L Hgb 11.2 L Hct 33.0 L MCV 87.8 MCH 29.8 MCHC 34.0 RDW 13.0 Plt Count 240 MPV 7.9 Neutrophils % 73.8 Lymphocytes % 14.2 Monocytes % 11.5 H Eosinophils % 0.2 Basophils % 0.3 Sodium 138 Potassium 3.8 Chloride 104 Carbon Dioxide 28 Anion Gap 6 L BUN 6 L D Creatinine 0.6 L Creat Clearance w eGFR > 60 Random Glucose 100 D Hemoglobin A1c % Calcium 7.9 L Phosphorus 2.5 Magnesium 1.9 Total Bilirubin 1.4 H AST 55 H ALT 22 Alkaline Phosphatase 74 Creatine Kinase 2530 H Creatine Kinase Index 0.1 CK-MB (CK-2) 2.748 Troponin I < 0.02 Total Protein 5.2 L Albumin 3.0 L Urine Color Urine Appearance Urine pH Ur Specific [place] Urine Protein Urine Glucose (UA) Urine Ketones Urine Blood Urine Nitrite Urine Bilirubin Urine Urobilinogen Ur Leukocyte Esterase Urine WBC (Auto) Urine RBC (Auto) 12/30/17 12/30/17 06:20 12:30 WBC RBC Hgb Hct MCV MCH MCHC RDW Plt Count MPV Neutrophils % Lymphocytes % Monocytes % Eosinophils % Basophils % Sodium Potassium Chloride Carbon Dioxide Anion Gap BUN Creatinine Creat Clearance w eGFR Random Glucose Hemoglobin A1c % 5.6 Calcium Phosphorus Magnesium Total Bilirubin AST ALT Alkaline Phosphatase Creatine Kinase Creatine Kinase Index CK-MB (CK-2) Troponin I Total Protein Albumin Urine Color Straw Urine Appearance Clear Urine pH 8.0 Ur Specific [place] 1.005 Urine Protein Negative Urine Glucose (UA) Negative Urine Ketones 1+ H Urine Blood 2+ H Urine Nitrite Negative Urine Bilirubin Negative Urine Urobilinogen Negative Ur Leukocyte Esterase Negative Urine WBC (Auto) <1 Urine RBC (Auto) 1 Active Medications Generic Name Dose Route Start Last Admin Trade Name Freq PRN Reason Stop Dose Admin Acetaminophen 1,000 mg 12/29/17 14:42 12/30/17 10:31 Ofirmev Injection - IVPB 1,000 mg Q6H PRN Administration PAIN LEVEL 6-10 Diazepam 5 mg 12/29/17 22:24 12/29/17 23:34 Valium - PO 5 mg TID PRN Administration BACK PAIN Gabapentin 300 mg 12/29/17 22:00 12/30/17 09:31 Neurontin - PO 300 mg BID KAMI Administration Lactated Ringer's 1,000 mls @ 75 mls/hr 12/28/17 21:15 12/29/17 21:37 Lactated Ringers Solution IV 75 mls/hr ASDIR KAMI Administration Nicotine 14 mg 12/29/17 10:00 12/30/17 09:31 Nicoderm Patch - TD 14 mg DAILY KAMI Administration Ondansetron HCl 4 mg 12/28/17 20:57 12/29/17 11:38 Zofran Injection IVPUSH 4 mg Q6H PRN Administration NAUSEA AND/OR VOMITING Ondansetron HCl 4 mg 12/28/17 21:13 Zofran Injection IVPUSH Q6H PRN NAUSEA AND/OR VOMITING Oxycodone HCl 5 mg 12/30/17 10:43 12/30/17 12:55 Roxicodone - PO 5 mg Q3H PRN Administration PAIN LEVEL 1-5 Oxycodone HCl 10 mg 12/30/17 10:43 Roxicodone - PO Q3H PRN PAIN LEVEL 6-10 Oxycodone HCl 10 mg 12/30/17 22:00 Oxycontin - PO 01/02/18 10:43 BID KAMI Promethazine HCl 12.5 mg 12/28/17 21:13 12/30/17 07:09 Phenergan Injection - IVPUSH 12.5 mg Q6H PRN Administration NAUSEA-FOR RESCUE AFTER 15 MIN Senna 1 tab 12/29/17 22:00 12/29/17 21:38 Senna - PO 1 tab HS KAMI Administration ASSESSMENT/PLAN: 32M w/ hx of asthma and back pain, now POD #2 s/p L4, L5, S1 laminectomies, L4- 5 & L5-S1 PLIF, L4-S1 PISF. Neuro #s/p laminectomies -pain control: per anesthesia, changed to oxycodone -incentive spirometer -OOB as tolerated -PT -monitor daniel drain output -d/c dennis this afternoon, trial of void -start on clears -phenergan and zofran PRN -d/c IV fluids once tolerating clears ID -fever and leukocytosis of 15.3 but still only POD #2 -no clear source -UA negative -f/u CXR paulina am, currently satting well on RA -if fever and/or leukocytosis persist, will obtain full infectious w/u GI -senna Psych #tobacco use -nicotine patch FEN/ppx -LR @ 75 -electrolytes wnl -NPO until passing flatus -no GI ppx -SCDs Case discussed with attending, Dr. Courtney. -Jamshid Encinas MD PGY1 ICU Team Visit type - Emergency Visit Emergency Visit: Yes ED Registration Date: 12/28/17 Care time: The patient presented to the Emergency Department on the above date and was hospitalized for further evaluation of their emergent condition. - New Patient This patient is new to me today: No - Critical Care Critical Care patient: Yes Total Critical Care Time (in minutes): 37 Critical Care Statement: The care of this patient involved high complexity decision making to prevent further life threatening deterioration of the patient 's condition and/or to evaluate & treat vital organ system(s) failure or risk of failure.
--- NOTE | 2017-12-30 13:44 | PATH ---
Surgical Pathology Report Patient Name: VINAY FRANK Med. Rec. #: [id number] /Age/Gender: 1985 (Age: 32) / M Account: [id number] Location: [facility] [place] Taken: 12/28/2017 Received: 12/29/2017 Reported: 12/30/2017 Physicians: Hollis Wilkinson M.D. Specimen(s) Received DISC L4,L5-S1 Clinical History Intervertebral disc disorder with radiculopathy Final Diagnosis DISC, L4, L5, S1, L5-S1 INTERBODY FUSION: INTERVERTEBRAL DISC TISSUE. Electronically Signed Jenna Urbina M.D. Gross Description Received in formalin labeled "L4, L5, S1," is a 4.5 x 3.5 x 0.4 cm aggregate of maddox fragments of fibrocartilaginous tissue. A safety representative portion is submitted in one cassette. /12/29/2017 saudi12/29/2017
[2017-12-30] MEDS ORDERED: PT OWN MED DRAWER 7, Y5N ONE (19:27)
--- NOTE | 2017-12-30 20:34 | PN ---
Physical Exam: SUBJECTIVE: Patient seen and examined at bedside. Pain controlled. Patient states he has passed flatus. OBJECTIVE: Vital Signs Period Temp Pulse Resp BP Sys/Piedra Pulse Ox Last 24 Hr 99.1 F-101.8 F 77-114 14-20 104-122/62-79 100-100 GENERAL: The patient is awake, alert, and fully oriented, in no acute distress. NECK: Trachea midline, full range of motion, supple. LUNGS: Breath sounds equal, clear to auscultation bilaterally, no wheezes, no crackles, no accessory muscle use. HEART: Regular rate and rhythm, S1, S2 without murmur, rub or gallop. ABDOMEN: Soft, nontender, nondistended, normoactive bowel sounds, no guarding, no rebound, no hepatosplenomegaly, no masses. EXTREMITIES: 2+ pulses, warm, well-perfused, no edema. NEUROLOGICAL: Cranial nerves II through X grossly intact. Normal speech, gait not observed SKIN: Warm, dry, normal turgor, no rashes or lesions noted Laboratory Results - last 24 hr 12/29/17 12/30/17 12/30/17 20:00 06:20 06:20 WBC 15.3 H RBC 3.76 L Hgb 11.2 L Hct 33.0 L MCV 87.8 MCH 29.8 MCHC 34.0 RDW 13.0 Plt Count 240 MPV 7.9 Neutrophils % 73.8 Lymphocytes % 14.2 Monocytes % 11.5 H Eosinophils % 0.2 Basophils % 0.3 Sodium 138 Potassium 3.8 Chloride 104 Carbon Dioxide 28 Anion Gap 6 L BUN 6 L D Creatinine 0.6 L Creat Clearance w eGFR > 60 Random Glucose 100 D Hemoglobin A1c % Calcium 7.9 L Phosphorus 2.5 Magnesium 1.9 Total Bilirubin 1.4 H AST 55 H ALT 22 Alkaline Phosphatase 74 Creatine Kinase 2530 H Creatine Kinase Index 0.1 CK-MB (CK-2) 2.748 Troponin I < 0.02 Total Protein 5.2 L Albumin 3.0 L Urine Color Urine Appearance Urine pH Ur Specific [place] Urine Protein Urine Glucose (UA) Urine Ketones Urine Blood Urine Nitrite Urine Bilirubin Urine Urobilinogen Ur Leukocyte Esterase Urine WBC (Auto) Urine RBC (Auto) 12/30/17 12/30/17 06:20 12:30 WBC RBC Hgb Hct MCV MCH MCHC RDW Plt Count MPV Neutrophils % Lymphocytes % Monocytes % Eosinophils % Basophils % Sodium Potassium Chloride Carbon Dioxide Anion Gap BUN Creatinine Creat Clearance w eGFR Random Glucose Hemoglobin A1c % 5.6 Calcium Phosphorus Magnesium Total Bilirubin AST ALT Alkaline Phosphatase Creatine Kinase Creatine Kinase Index CK-MB (CK-2) Troponin I Total Protein Albumin Urine Color Straw Urine Appearance Clear Urine pH 8.0 Ur Specific [place] 1.005 Urine Protein Negative Urine Glucose (UA) Negative Urine Ketones 1+ H Urine Blood 2+ H Urine Nitrite Negative Urine Bilirubin Negative Urine Urobilinogen Negative Ur Leukocyte Esterase Negative Urine WBC (Auto) <1 Urine RBC (Auto) 1 Active Medications Generic Name Dose Route Start Last Admin Trade Name Freq PRN Reason Stop Dose Admin Acetaminophen 1,000 mg 12/29/17 14:42 12/30/17 19:24 Ofirmev Injection - IVPB 1,000 mg Q6H PRN Administration PAIN LEVEL 6-10 Diazepam 5 mg 12/29/17 22:24 12/29/17 23:34 Valium - PO 5 mg TID PRN Administration BACK PAIN Gabapentin 300 mg 12/29/17 22:00 12/30/17 09:31 Neurontin - PO 300 mg BID KAMI Administration Lactated Ringer's 1,000 mls @ 75 mls/hr 12/28/17 21:15 12/29/17 21:37 Lactated Ringers Solution IV 75 mls/hr ASDIR KAMI Administration Nicotine 14 mg 12/29/17 10:00 12/30/17 09:31 Nicoderm Patch - TD 14 mg DAILY KAMI Administration Ondansetron HCl 4 mg 12/28/17 20:57 12/29/17 11:38 Zofran Injection IVPUSH 4 mg Q6H PRN Administration NAUSEA AND/OR VOMITING Ondansetron HCl 4 mg 12/28/17 21:13 Zofran Injection IVPUSH Q6H PRN NAUSEA AND/OR VOMITING Oxycodone HCl 5 mg 12/30/17 10:43 12/30/17 19:27 Roxicodone - PO 5 mg Q3H PRN Administration PAIN LEVEL 1-5 Oxycodone HCl 10 mg 12/30/17 10:43 Roxicodone - PO Q3H PRN PAIN LEVEL 6-10 Oxycodone HCl 10 mg 12/30/17 22:00 Oxycontin - PO 01/02/18 10:43 BID KAMI Promethazine HCl 12.5 mg 12/28/17 21:13 12/30/17 07:09 Phenergan Injection - IVPUSH 12.5 mg Q6H PRN Administration NAUSEA-FOR RESCUE AFTER 15 MIN Senna 1 tab 12/29/17 22:00 12/29/17 21:38 Senna - PO 1 tab HS KAMI Administration ASSESSMENT/PLAN: This is a 32 yo m w/ no PMH who is POD 1 from L4, L5, S1 laminectomies and L4-5 and L5-S1 instrumented fusion. #POD1 spinal surgery w/ Dr. Wilkinson -management as per Dr. Wilkinson: -Pain control w/ CHIEF OPHTHALMIC TECHNICIAN as per anaesthesia team. -Mechanical DVT PPx. only: NELSY's, SCD's. -Incentive spirometry -pulmonary toilet. -PT and rehab after 72 hrs bed rest -drain w/ minimal output. -d/c Lira once ambulating. -NPO until flatus. -Ancef, Vanco in perioperative period #FEN -no fluids indicated -monitor lytes -NPO until flatus #Dispo -admit to ICU Visit type - Emergency Visit Emergency Visit: Yes ED Registration Date: 12/28/17 Care time: The patient presented to the Emergency Department on the above date and was hospitalized for further evaluation of their emergent condition. - New Patient This patient is new to me today: No - Critical Care Critical Care patient: Yes Total Critical Care Time (in minutes): 39 Critical Care Statement: The care of this patient involved high complexity decision making to prevent further life threatening deterioration of the patient 's condition and/or to evaluate & treat vital organ system(s) failure or risk of failure.
[2017-12-30] MEDS: SENNOSIDES 8.6MG TABLET (FP) PO SCH (21:05)
[2017-12-30] MEDS: oxyCODONE HCL 10 MG SUSTAINED ACTING TABLET PO SCH (21:05)
[2017-12-30] MEDS: LACTATED RINGERS SOLUTION 1,000 ML IV SCH (21:06)
[2017-12-31] MEDS: oxyCODONE HCL 5 MG TABLET PO PRN ×4 (06:15→20:28)
[2017-12-31] MEDS: diazePAM 5 MG TABLET PO PRN ×3 (06:15→20:29)
[2017-12-31] MEDS: LACTATED RINGERS SOLUTION 1,000 ML IV SCH (06:15)
[2017-12-31 06:41] LABS: BASO % 0.6 % (0-2.0); EOS % 0.8 % (0-4.5); MCH 30.2 pg (25.7-33.7); MCHC 34.3 g/dl (32.0-35.9); MEAN CELL VOLUME 87.8 fl (80-96); MEAN PLT VOLUME 7.9 fl (7.5-11.1); MONO % 10.9 % (3.8-10.2); NEUT % 72.7 % (42.8-82.8); PLATELET COUNT 234 K/MM3 (134-434); RBC 3.65 M/mm3 (4.00-5.60); WHITE BLOOD COUNT 12.9 K/mm3 (4.0-10.0)
[2017-12-31 07:08] LABS: ALBUMIN 2.9 g/dl (3.4-5.0); ANION GAP 9 (8-16); BLOOD UREA NITROGEN 5 mg/dL (7-18); CALCIUM 8.3 mg/dL (8.5-10.1); CHLORIDE 104 mmol/L (98-107); CO2 29 mmol/L (21-32); GLUCOSE,RANDOM 98 mg/dL (74-106); MAGNESIUM 2.3 mg/dL (1.8-2.4); SODIUM 142 mmol/L (136-145)
[2017-12-31 07:23] LABS: ALK PHOS 77 U/L (45-117); CREATININE 0.6 mg/dL (0.7-1.3); SGOT/AST 47 U/L (15-37); SGPT/ALT 20 U/L (12-78); TOT PROT 5.7 g/dl (6.4-8.2)
[2017-12-31] MEDS: oxyCODONE HCL 10 MG SUSTAINED ACTING TABLET PO SCH ×2 (09:31→21:20)
[2017-12-31] MEDS: GABAPENTIN 300 MG CAPSULE (FP) PO SCH ×2 (09:33→21:20)
[2017-12-31] MEDS: NICOTINE 14 MG/24 HOURS TOPICAL PATCH TD SCH (09:33)
[2017-12-31] MEDS: ACETAMINOPHEN 1000 MG/100 ML VIAL (NON FORMULARY) IVPB PRN (10:37)
[2017-12-31] MEDS ORDERED: LACTATED RINGERS SOLUTION 1,000 ML IV SCH (10:50)
--- NOTE | 2017-12-31 12:32 | PN ---
Teaching Attending Note Name of Resident: Jamshid Encinas ATTENDING PHYSICIAN STATEMENT I saw and evaluated the patient. I reviewed the resident's note and discussed the case with the resident. I agree with the resident's findings and plan as documented. SUBJECTIVE: Pt seen and examined in the ICU. Pain with movement. Persistent fevers. Denies cough, nausea or vomiting. No diarrhea. Tolerating clears. OBJECTIVE: Last Vital Signs Temp Pulse Resp BP Pulse Ox 99.3 F 105 H 16 119/80 95 12/31/17 10:00 12/31/17 10:00 12/31/17 10:00 12/31/17 10:00 12/30/17 21:00 Intake & Output 12/28/17 12/29/17 12/30/17 12/31/17 23:59 23:59 23:59 23:59 Intake Total 1000 1550 2440 1480 Output Total 1900 1150 4300 0 Balance -900 400 -1860 1480 Weight 64.212 kg 64.41 kg 60.192 kg Gen: NAD at rest Heart: tachycardic, regular Lung: decreased breath sounds at the bases Abd: soft, nontender Ext: no edema CBC, BMP 12/31/17 06:15 12/31/17 06:15 Active Medications Diazepam (Valium -) 5 mg PO TID PRN PRN Reason: BACK PAIN Last Admin: 12/31/17 10:29 Dose: 5 mg Gabapentin (Neurontin -) 300 mg PO BID [facility] Last Admin: 12/31/17 09:33 Dose: 300 mg Lactated Ringer's (Lactated Ringers Solution) 1,000 mls @ 125 mls/hr IV ASDIR [facility] Last Admin: 12/31/17 12:06 Dose: 125 mls/hr Nicotine (Nicoderm Patch -) 14 mg TD DAILY [facility] Last Admin: 12/31/17 09:33 Dose: 14 mg Ondansetron HCl (Zofran Injection) 4 mg IVPUSH Q6H PRN PRN Reason: NAUSEA AND/OR VOMITING Last Admin: 12/29/17 11:38 Dose: 4 mg Ondansetron HCl (Zofran Injection) 4 mg IVPUSH Q6H PRN PRN Reason: NAUSEA AND/OR VOMITING Oxycodone HCl (Roxicodone -) 5 mg PO Q3H PRN PRN Reason: PAIN LEVEL 1-5 Last Admin: 12/31/17 06:15 Dose: 5 mg Oxycodone HCl (Roxicodone -) 10 mg PO Q3H PRN PRN Reason: PAIN LEVEL 6-10 Oxycodone HCl (Oxycontin -) 10 mg PO BID [facility] Stop: 01/02/18 10:43 Last Admin: 12/31/17 09:31 Dose: 10 mg Promethazine HCl (Phenergan Injection -) 12.5 mg IVPUSH Q6H PRN PRN Reason: NAUSEA-FOR RESCUE AFTER 15 MIN Last Admin: 12/30/17 07:09 Dose: 12.5 mg Senna (Senna -) 1 tab PO HS [facility] Last Admin: 12/30/17 21:05 Dose: 1 tab ASSESSMENT AND PLAN: Lumbar Spinal Stenosis s/p L4-S1 Laminectomies/Fusions Asthma Smoker - pain control - incentive spirometry - bowel regimen - rehab/PT - monitor drain output - monitor H/H - activity/dennis/PO per surgery - mechanical DVT prophylaxis - if remains febrile, check LE dopplers
--- NOTE | 2017-12-31 14:51 | PN ---
Physical Exam: SUBJECTIVE: Patient seen and examined Pt spiked a temp of 101.8 overnight. This am, pt reports that back pain is 7/ 10. He denies SOB, chest pain, abdominal pain, n/v/d/c, and dysuria. He states that he has been urinating without his dennis. He is tolerating the clear liquid diet and wants to start solids. OBJECTIVE: Vital Signs Period Temp Pulse Resp BP Sys/Piedra Pulse Ox Last 24 Hr 99.3 F-101.8 F 88-114 14-17 110-121/69-80 95 GENERAL: The patient is awake, alert, and fully oriented, in no acute distress. HEENT: NC, AT LUNGS: Breath sounds equal, clear to auscultation bilaterally, no wheezes, no crackles, no accessory muscle use. HEART: Regular rate and rhythm, S1, S2 without murmur, rub or gallop. ABDOMEN: Soft, nontender, nondistended, normoactive bowel sounds, no guarding, no rebound, no hepatosplenomegaly, no masses. Back: no drainage present in daniel drain EXTREMITIES: 2+ pulses, warm, well-perfused, no edema. NEUROLOGICAL: CN 2-12 intact, sensory function in b/l LE intact, strength difficult to assess in legs due to pain Laboratory Results - last 24 hr 12/31/17 12/31/17 12/31/17 06:15 06:15 06:15 WBC 12.9 H RBC 3.65 L Hgb 11.0 L Hct 32.0 L MCV 87.8 MCH 30.2 MCHC 34.3 RDW 13.0 Plt Count 234 MPV 7.9 Neutrophils % 72.7 Lymphocytes % 15.0 Monocytes % 10.9 H Eosinophils % 0.8 D Basophils % 0.6 Sodium 142 Potassium 4.0 Chloride 104 Carbon Dioxide 29 Anion Gap 9 BUN 5 L Creatinine 0.6 L Creat Clearance w eGFR > 60 Random Glucose 98 Calcium 8.3 L Phosphorus 3.0 Magnesium 2.3 D Total Bilirubin 1.0 D AST 47 H ALT 20 Alkaline Phosphatase 77 Creatine Kinase 1311 H Cancelled Creatine Kinase Index 0.0 CK-MB (CK-2) < 1.000 Total Protein 5.7 L Albumin 2.9 L Active Medications Generic Name Dose Route Start Last Admin Trade Name Freq PRN Reason Stop Dose Admin Diazepam 5 mg 12/29/17 22:24 12/31/17 10:29 Valium - PO 5 mg TID PRN Administration BACK PAIN Gabapentin 300 mg 12/29/17 22:00 12/31/17 09:33 Neurontin - PO 300 mg BID KAMI Administration Lactated Ringer's 1,000 mls @ 125 mls/hr 12/31/17 10:50 12/31/17 12:06 Lactated Ringers Solution IV 125 mls/hr ASDIR KAMI Administration Nicotine 14 mg 12/29/17 10:00 12/31/17 09:33 Nicoderm Patch - TD 14 mg DAILY KAMI Administration Ondansetron HCl 4 mg 12/28/17 20:57 12/29/17 11:38 Zofran Injection IVPUSH 4 mg Q6H PRN Administration NAUSEA AND/OR VOMITING Ondansetron HCl 4 mg 12/28/17 21:13 Zofran Injection IVPUSH Q6H PRN NAUSEA AND/OR VOMITING Oxycodone HCl 5 mg 12/30/17 10:43 12/31/17 06:15 Roxicodone - PO 5 mg Q3H PRN Administration PAIN LEVEL 1-5 Oxycodone HCl 10 mg 12/30/17 10:43 12/31/17 14:09 Roxicodone - PO 10 mg Q3H PRN Administration PAIN LEVEL 6-10 Oxycodone HCl 10 mg 12/30/17 22:00 12/31/17 09:31 Oxycontin - PO 01/02/18 10:43 10 mg BID KAMI Administration Promethazine HCl 12.5 mg 12/28/17 21:13 12/30/17 07:09 Phenergan Injection - IVPUSH 12.5 mg Q6H PRN Administration NAUSEA-FOR RESCUE AFTER 15 MIN Senna 1 tab 12/29/17 22:00 12/30/17 21:05 Senna - PO 1 tab HS KAMI Administration ASSESSMENT/PLAN: 32M w/ hx of asthma and back pain, now POD #3 s/p L4, L5, S1 laminectomies, L4- 5 & L5-S1 PLIF, L4-S1 PISF. Neuro #s/p laminectomies -pain control: per anesthesia. continue oxycodone. -incentive spirometer -OOB as tolerated -PT -monitor daniel drain output -advance diet as tolerated -phenergan and zofran PRN -d/c IV fluids once tolerating clears -management per neurosurgeryd ID -fever and leukocytosis of 12.9 -no clear source -UA negative, CXR negative, Bcx pending -if fever and/or leukocytosis persist, will doppler LEs to r\o DVT GI -senna Psych #tobacco use -nicotine patch FEN/ppx -LR @ 75 -electrolytes wnl -clear liquid diet -no GI ppx -SCDs Case discussed with attending, Dr. Courtney. -Jamshid Encinas MD PGY1 ICU Team Visit type - Emergency Visit Emergency Visit: Yes ED Registration Date: 12/28/17 Care time: The patient presented to the Emergency Department on the above date and was hospitalized for further evaluation of their emergent condition. - New Patient This patient is new to me today: No - Critical Care Critical Care patient: Yes Total Critical Care Time (in minutes): 36 Critical Care Statement: The care of this patient involved high complexity decision making to prevent further life threatening deterioration of the patient 's condition and/or to evaluate & treat vital organ system(s) failure or risk of failure.
--- NOTE | 2017-12-31 15:23 | PN ---
<Joe Santos - Last Filed: 12/31/17 15:19> Physical Exam: SUBJECTIVE: Patient seen and examined at bedside. 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 OBJECTIVE: Vital Signs Period Temp Pulse Resp BP Sys/Piedra Pulse Ox Last 24 Hr 99 F-101.8 F 88-114 14-17 110-121/69-80 95 GENERAL: The patient is awake, alert, and fully oriented, in no acute distress. HEAD: Normal with no signs of trauma. NECK: Trachea midline, full range of motion, supple. LUNGS: Breath sounds equal, clear to auscultation bilaterally, no wheezes, no crackles, no accessory muscle use. HEART: Regular rate and rhythm, S1, S2 without murmur, rub or gallop. ABDOMEN: Soft, nontender, nondistended, normoactive bowel sounds, no guarding, no rebound, no hepatosplenomegaly, no masses. EXTREMITIES: 2+ pulses, warm, well-perfused, no edema. NEUROLOGICAL: Cranial nerves II through X grossly intact. Normal speech, gait not observed. SKIN: Warm, dry, normal turgor, no rashes or lesions noted Laboratory Results - last 24 hr 12/31/17 12/31/17 12/31/17 06:15 06:15 06:15 WBC 12.9 H RBC 3.65 L Hgb 11.0 L Hct 32.0 L MCV 87.8 MCH 30.2 MCHC 34.3 RDW 13.0 Plt Count 234 MPV 7.9 Neutrophils % 72.7 Lymphocytes % 15.0 Monocytes % 10.9 H Eosinophils % 0.8 D Basophils % 0.6 Sodium 142 Potassium 4.0 Chloride 104 Carbon Dioxide 29 Anion Gap 9 BUN 5 L Creatinine 0.6 L Creat Clearance w eGFR > 60 Random Glucose 98 Calcium 8.3 L Phosphorus 3.0 Magnesium 2.3 D Total Bilirubin 1.0 D AST 47 H ALT 20 Alkaline Phosphatase 77 Creatine Kinase 1311 H Cancelled Creatine Kinase Index 0.0 CK-MB (CK-2) < 1.000 Total Protein 5.7 L Albumin 2.9 L Active Medications Generic Name Dose Route Start Last Admin Trade Name Freq PRN Reason Stop Dose Admin Diazepam 5 mg 12/29/17 22:24 12/31/17 10:29 Valium - PO 5 mg TID PRN Administration BACK PAIN Gabapentin 300 mg 12/29/17 22:00 12/31/17 09:33 Neurontin - PO 300 mg BID KAMI Administration Lactated Ringer's 1,000 mls @ 125 mls/hr 12/31/17 10:50 12/31/17 12:06 Lactated Ringers Solution IV 125 mls/hr ASDIR KAMI Administration Nicotine 14 mg 12/29/17 10:00 12/31/17 09:33 Nicoderm Patch - TD 14 mg DAILY KAMI Administration Ondansetron HCl 4 mg 12/28/17 20:57 12/29/17 11:38 Zofran Injection IVPUSH 4 mg Q6H PRN Administration NAUSEA AND/OR VOMITING Ondansetron HCl 4 mg 12/28/17 21:13 Zofran Injection IVPUSH Q6H PRN NAUSEA AND/OR VOMITING Oxycodone HCl 5 mg 12/30/17 10:43 12/31/17 06:15 Roxicodone - PO 5 mg Q3H PRN Administration PAIN LEVEL 1-5 Oxycodone HCl 10 mg 12/30/17 10:43 12/31/17 14:09 Roxicodone - PO 10 mg Q3H PRN Administration PAIN LEVEL 6-10 Oxycodone HCl 10 mg 12/30/17 22:00 12/31/17 09:31 Oxycontin - PO 01/02/18 10:43 10 mg BID KAMI Administration Promethazine HCl 12.5 mg 12/28/17 21:13 12/30/17 07:09 Phenergan Injection - IVPUSH 12.5 mg Q6H PRN Administration NAUSEA-FOR RESCUE AFTER 15 MIN Senna 1 tab 12/29/17 22:00 12/30/17 21:05 Senna - PO 1 tab HS KAMI Administration ASSESSMENT/PLAN: This is a 32 yo m w/ no PMH who is POD 3 from L4, L5, S1 laminectomies and L4-5 and L5-S1 instrumented fusion. #POD3 spinal surgery w/ Dr. Wilkinson -management as per Dr. Wilkinson: -Pain control -Mechanical DVT PPx. only: NELSY's, SCD's. -Incentive spirometry -pulmonary toilet. -PT and rehab after 72 hrs bed rest -drain w/ minimal output. -d/c Lira once ambulating. -Patient passed flatus; advance diet as per surgery. -David Lowery in perioperative period #FEN -no fluids indicated -monitor lytes -diet as per surgery #Dispo -admit to ICU Visit type - Emergency Visit Emergency Visit: Yes ED Registration Date: 12/28/17 Care time: The patient presented to the Emergency Department on the above date and was hospitalized for further evaluation of their emergent condition. - New Patient This patient is new to me today: No - Critical Care Critical Care patient: Yes Total Critical Care Time (in minutes): 40 Critical Care Statement: The care of this patient involved high complexity decision making to prevent further life threatening deterioration of the patient 's condition and/or to evaluate & treat vital organ system(s) failure or risk of failure. <Ashley Block - Last Filed: 12/31/17 19:27> Physical Exam: Patient is feeling better, pain is better control. Agree with the resident's note PE per Dr.Shein sheets. Vital Signs Temperature 99 F 12/31/17 14:00 Pulse Rate 103 H 12/31/17 16:00 Respiratory Rate 16 12/31/17 16:00 Blood Pressure 115/82 12/31/17 16:00 O2 Sat by Pulse Oximetry (%) 95 12/30/17 21:00 CBCD WBC 12.9 K/mm3 (4.0-10.0) H 12/31/17 06:15 RBC 3.65 M/mm3 (4.00-5.60) L 12/31/17 06:15 Hgb 11.0 GM/dL (11.7-16.9) L 12/31/17 06:15 Hct 32.0 % (35.4-49) L 12/31/17 06:15 MCV 87.8 fl (80-96) 12/31/17 06:15 MCHC 34.3 g/dl (32.0-35.9) 12/31/17 06:15 RDW 13.0 % (11.9-15.9) 12/31/17 06:15 Plt Count 234 K/MM3 (134-434) 12/31/17 06:15 MPV 7.9 fl (7.5-11.1) 12/31/17 06:15 CMP Sodium 142 mmol/L (136-145) 12/31/17 06:15 Potassium 4.0 mmol/L (3.5-5.1) 12/31/17 06:15 Chloride 104 mmol/L (98-107) 12/31/17 06:15 Carbon Dioxide 29 mmol/L (21-32) 12/31/17 06:15 Anion Gap 9 (8-16) 12/31/17 06:15 BUN 5 mg/dL (7-18) L 12/31/17 06:15 Creatinine 0.6 mg/dL (0.7-1.3) L 12/31/17 06:15 Creat Clearance w eGFR > 60 (>60) 12/31/17 06:15 Random Glucose 98 mg/dL (74-106) 12/31/17 06:15 Calcium 8.3 mg/dL (8.5-10.1) L 12/31/17 06:15 Total Bilirubin 1.0 mg/dL (0.2-1.0) D 12/31/17 06:15 AST 47 U/L (15-37) H 12/31/17 06:15 ALT 20 U/L (12-78) 12/31/17 06:15 Alkaline Phosphatase 77 U/L (45-117) 12/31/17 06:15 Total Protein 5.7 g/dl (6.4-8.2) L 12/31/17 06:15 Albumin 2.9 g/dl (3.4-5.0) L 12/31/17 06:15 CARDIAC ENZYMES Creatine Kinase 1311 IU/L (39-308) H 12/31/17 06:15 Troponin I < 0.02 ng/ml (0.00-0.05) 12/29/17 20:00 Current Medications Generic Name Dose Route Start Last Admin Trade Name Freq PRN Reason Stop Dose Admin Diazepam 5 mg 12/29/17 22:24 12/31/17 10:29 Valium - PO 5 mg TID PRN Administration BACK PAIN Gabapentin 300 mg 12/29/17 22:00 12/31/17 09:33 Neurontin - PO 300 mg BID KAMI Administration Lactated Ringer's 1,000 mls @ 125 mls/hr 12/31/17 10:50 12/31/17 12:06 Lactated Ringers Solution IV 125 mls/hr ASDIR KAMI Administration Nicotine 14 mg 12/29/17 10:00 12/31/17 09:33 Nicoderm Patch - TD 14 mg DAILY KAMI Administration Ondansetron HCl 4 mg 12/28/17 20:57 12/29/17 11:38 Zofran Injection IVPUSH 4 mg Q6H PRN Administration NAUSEA AND/OR VOMITING Ondansetron HCl 4 mg 12/28/17 21:13 Zofran Injection IVPUSH Q6H PRN NAUSEA AND/OR VOMITING Oxycodone HCl 5 mg 12/30/17 10:43 12/31/17 06:15 Roxicodone - PO 5 mg Q3H PRN Administration PAIN LEVEL 1-5 Oxycodone HCl 10 mg 12/30/17 10:43 12/31/17 18:05 Roxicodone - PO 10 mg Q3H PRN Administration PAIN LEVEL 6-10 Oxycodone HCl 10 mg 12/30/17 22:00 12/31/17 09:31 Oxycontin - PO 01/02/18 10:43 10 mg BID KAMI Administration Promethazine HCl 12.5 mg 12/28/17 21:13 12/30/17 07:09 Phenergan Injection - IVPUSH 12.5 mg Q6H PRN Administration NAUSEA-FOR RESCUE AFTER 15 MIN Senna 1 tab 12/29/17 22:00 12/30/17 21:05 Senna - PO 1 tab HS [facility] Administration Home Medications Medication Instructions Recorded Diazepam [Valium] 5 mg PO HS 12/24/17 Oxycodone HCl/Acetaminophen 1 each PO Q4H PRN 12/24/17 [Percocet 10-325 mg Tablet]
[2017-12-31] MEDS: SENNOSIDES 8.6MG TABLET (FP) PO SCH (21:20)
[2018-01-01] MEDS: oxyCODONE HCL 5 MG TABLET PO PRN ×4 (00:54→19:56)
[2018-01-01 06:03] LABS: BASO % 0.5 % (0-2.0); EOS % 2.8 % (0-4.5); HEMOGLOBIN 10.4 GM/dL (11.7-16.9); LYMPH % 22.5 % (8-40); MCH 30.4 pg (25.7-33.7); MCHC 34.7 g/dl (32.0-35.9); MEAN CELL VOLUME 87.7 fl (80-96); MEAN PLT VOLUME 8.1 fl (7.5-11.1); NEUT % 63.2 % (42.8-82.8); PLATELET COUNT 262 K/MM3 (134-434); RBC 3.42 M/mm3 (4.00-5.60); WHITE BLOOD COUNT 9.7 K/mm3 (4.0-10.0)
[2018-01-01 06:24] LABS: ANION GAP 12 (8-16); BLOOD UREA NITROGEN 3 mg/dL (7-18); CALCIUM 8.1 mg/dL (8.5-10.1); CHLORIDE 101 mmol/L (98-107); CO2 29 mmol/L (21-32); CREATININE 0.7 mg/dL (0.7-1.3); GLUCOSE,RANDOM 98 mg/dL (74-106); MAGNESIUM 2.1 mg/dL (1.8-2.4); PHOSPHOROUS 2.6 mg/dL (2.5-4.9); POTASSIUM 3.5 mmol/L (3.5-5.1); SODIUM 142 mmol/L (136-145)
[2018-01-01] MEDS: diazePAM 5 MG TABLET PO PRN ×2 (06:27→19:57)
--- NOTE | 2018-01-01 09:03 | PN ---
Physical Exam: SUBJECTIVE: Patient seen and examined No acute events overnight. Pt tolerating back pain adequately on oral pain meds. He is tolerating a regular diet this am without n/v or abdominal pain. He denies chest pain, SOB, fevers, chills, or dysuria. He is urinating without dennis. He denies having a BM since his surgery. OBJECTIVE: Vital Signs Period Temp Pulse Resp BP Sys/Piedra Pulse Ox Last 24 Hr 98.9 F-99.9 F 88-105 12-16 104-121/71-82 100 GENERAL: The patient is awake, alert, and fully oriented, in no acute distress. HEENT: NC, AT LUNGS: Breath sounds equal, clear to auscultation bilaterally, no wheezes, no crackles, no accessory muscle use. HEART: Regular rate and rhythm, S1, S2 without murmur, rub or gallop. ABDOMEN: Soft, nontender, nondistended, normoactive bowel sounds, no guarding, no rebound, no hepatosplenomegaly, no masses. Back: no drainage present in daniel drain EXTREMITIES: 2+ pulses, warm, well-perfused, no edema. NEUROLOGICAL: CN 2-12 intact, sensory function in b/l LE intact, strength difficult to assess in legs due to pain Laboratory Results - last 24 hr 01/01/18 01/01/18 05:45 05:45 WBC 9.7 RBC 3.42 L Hgb 10.4 L Hct 30.0 L MCV 87.7 MCH 30.4 MCHC 34.7 RDW 13.0 Plt Count 262 MPV 8.1 Neutrophils % 63.2 Lymphocytes % 22.5 D Monocytes % 11.0 H Eosinophils % 2.8 D Basophils % 0.5 Sodium 142 Potassium 3.5 Chloride 101 Carbon Dioxide 29 Anion Gap 12 BUN 3 L D Creatinine 0.7 Random Glucose 98 Calcium 8.1 L Phosphorus 2.6 Magnesium 2.1 Active Medications Generic Name Dose Route Start Last Admin Trade Name Freq PRN Reason Stop Dose Admin Diazepam 5 mg 12/29/17 22:24 01/01/18 06:27 Valium - PO 5 mg TID PRN Administration BACK PAIN Gabapentin 300 mg 12/29/17 22:00 12/31/17 21:20 Neurontin - PO 300 mg BID KAMI Administration Lactated Ringer's 1,000 mls @ 125 mls/hr 12/31/17 10:50 12/31/17 12:06 Lactated Ringers Solution IV 125 mls/hr ASDIR KAMI Administration Nicotine 14 mg 12/29/17 10:00 12/31/17 09:33 Nicoderm Patch - TD 14 mg DAILY KAMI Administration Ondansetron HCl 4 mg 12/28/17 20:57 12/29/17 11:38 Zofran Injection IVPUSH 4 mg Q6H PRN Administration NAUSEA AND/OR VOMITING Ondansetron HCl 4 mg 12/28/17 21:13 Zofran Injection IVPUSH Q6H PRN NAUSEA AND/OR VOMITING Oxycodone HCl 5 mg 12/30/17 10:43 01/01/18 06:27 Roxicodone - PO 5 mg Q3H PRN Administration PAIN LEVEL 1-5 Oxycodone HCl 10 mg 12/30/17 10:43 01/01/18 00:54 Roxicodone - PO 10 mg Q3H PRN Administration PAIN LEVEL 6-10 Oxycodone HCl 10 mg 12/30/17 22:00 12/31/17 21:20 Oxycontin - PO 01/02/18 10:43 10 mg BID KAMI Administration Promethazine HCl 12.5 mg 12/28/17 21:13 12/30/17 07:09 Phenergan Injection - IVPUSH 12.5 mg Q6H PRN Administration NAUSEA-FOR RESCUE AFTER 15 MIN Senna 1 tab 12/29/17 22:00 12/31/17 21:20 Senna - PO 1 tab HS KAMI Administration ASSESSMENT/PLAN: 32M w/ hx of asthma and back pain, now POD #4 s/p L4, L5, S1 laminectomies, L4- 5 & L5-S1 PLIF, L4-S1 PISF. Neuro #s/p laminectomies -pain control: per anesthesia. continue oxycodone. -incentive spirometer -OOB as tolerated -PT: walked 25 ft yesterday -monitor daniel drain output: none so far -advance diet as tolerated. tolerating regular diet this am -phenergan and zofran PRN -fluids d/c'd ID -afebrile overnight, leukocytosis resolved -no clear source -UA negative, CXR negative, Bcx pending -if fever and/or leukocytosis persist, will doppler LEs to r\o DVT GI -senna -no BM since surgery. Pt does not want more than senna at this time. Psych #tobacco use -nicotine patch FEN/ppx -po fluids -electrolytes wnl -regular diet -no GI ppx -SCDs Dispo: Pending neurosurgery recs Case discussed with attending, Dr. Murphy. -Jamshid Encinas MD PGY1 ICU Team Visit type - Emergency Visit Emergency Visit: Yes ED Registration Date: 12/28/17 Care time: The patient presented to the Emergency Department on the above date and was hospitalized for further evaluation of their emergent condition. - New Patient This patient is new to me today: No - Critical Care Critical Care patient: Yes Total Critical Care Time (in minutes): 35 Critical Care Statement: The care of this patient involved high complexity decision making to prevent further life threatening deterioration of the patient 's condition and/or to evaluate & treat vital organ system(s) failure or risk of failure.
[2018-01-01] MEDS ORDERED: PT OWN MED DRAWER 7, Y5N ONE (10:26)
[2018-01-01] MEDS: GABAPENTIN 300 MG CAPSULE (FP) PO SCH ×2 (10:28→21:18)
[2018-01-01] MEDS: oxyCODONE HCL 10 MG SUSTAINED ACTING TABLET PO SCH ×2 (10:28→21:18)
[2018-01-01] MEDS: NICOTINE 14 MG/24 HOURS TOPICAL PATCH TD SCH (10:29)
--- NOTE | 2018-01-01 11:30 | PN ---
<Salina Zamorano - Last Filed: 01/01/18 15:50> Physical Exam: SUBJECTIVE: Patient seen and examined OBJECTIVE: Vital Signs Period Temp Pulse Resp BP Sys/Piedra Pulse Ox Last 24 Hr 98.9 F-99.9 F 88-105 12-16 104-121/71-82 100 GENERAL: The patient is awake, alert, and fully oriented, in no acute distress. LUNGS: Breath sounds equal, clear to auscultation bilaterally, no wheezes, no crackles, no accessory muscle use. HEART: Regular rate and rhythm, S1, S2 without murmur, rub or gallop. ABDOMEN: Soft, nontender, nondistended, normoactive bowel sounds, no guarding, no rebound, no hepatosplenomegaly, no masses. EXTREMITIES: 2+ pulses, warm, well-perfused, no edema. NEUROLOGICAL and Musculoskeletel deferred to Dr. Garza Laboratory Results - last 24 hr 01/01/18 01/01/18 05:45 05:45 WBC 9.7 RBC 3.42 L Hgb 10.4 L Hct 30.0 L MCV 87.7 MCH 30.4 MCHC 34.7 RDW 13.0 Plt Count 262 MPV 8.1 Neutrophils % 63.2 Lymphocytes % 22.5 D Monocytes % 11.0 H Eosinophils % 2.8 D Basophils % 0.5 Sodium 142 Potassium 3.5 Chloride 101 Carbon Dioxide 29 Anion Gap 12 BUN 3 L D Creatinine 0.7 Random Glucose 98 Calcium 8.1 L Phosphorus 2.6 Magnesium 2.1 Active Medications Generic Name Dose Route Start Last Admin Trade Name Freq PRN Reason Stop Dose Admin Diazepam 5 mg 12/29/17 22:24 01/01/18 06:27 Valium - PO 5 mg TID PRN Administration BACK PAIN Gabapentin 300 mg 12/29/17 22:00 01/01/18 10:28 Neurontin - PO 300 mg BID KAMI Administration Lactated Ringer's 1,000 mls @ 125 mls/hr 12/31/17 10:50 12/31/17 12:06 Lactated Ringers Solution IV 125 mls/hr ASDIR KAMI Administration Nicotine 14 mg 12/29/17 10:00 01/01/18 10:29 Nicoderm Patch - TD 14 mg DAILY AKMI Administration Ondansetron HCl 4 mg 12/28/17 20:57 12/29/17 11:38 Zofran Injection IVPUSH 4 mg Q6H PRN Administration NAUSEA AND/OR VOMITING Ondansetron HCl 4 mg 12/28/17 21:13 Zofran Injection IVPUSH Q6H PRN NAUSEA AND/OR VOMITING Oxycodone HCl 5 mg 12/30/17 10:43 01/01/18 06:27 Roxicodone - PO 5 mg Q3H PRN Administration PAIN LEVEL 1-5 Oxycodone HCl 10 mg 12/30/17 10:43 01/01/18 00:54 Roxicodone - PO 10 mg Q3H PRN Administration PAIN LEVEL 6-10 Oxycodone HCl 10 mg 12/30/17 22:00 01/01/18 10:28 Oxycontin - PO 01/02/18 10:43 10 mg BID KAMI Administration Promethazine HCl 12.5 mg 12/28/17 21:13 12/30/17 07:09 Phenergan Injection - IVPUSH 12.5 mg Q6H PRN Administration NAUSEA-FOR RESCUE AFTER 15 MIN Senna 1 tab 12/29/17 22:00 12/31/17 21:20 Senna - PO 1 tab HS KAMI Administration ASSESSMENT/PLAN: This is a 32 year old male with a past medical history of back pain, s/p POD #4 from L4, L5, S1 laminectomies and L4-5 and L5-S1 instrumented fusion. #POD4 spinal surgery w/ Dr. Wilkinson -management as per Dr. Wilkinson (activity, diet) -pain control with bowel regimen - ncentive spirometry -PT ; walked 30' with walker yesterday -cont monitor drain output #anemia: most likely related to surgery blood loss; drain still with sanginous fluid; monitor output -may also be dilutional from fluids -will monitor h/h -transfuse threshold <7 #intermittent fever; initial white count but has trended down -this is attributed to surgery; no antibiotic as per Dr. Wilkinson; -blood cx pending; DVT prophylaxis: scds; ambulate Disposition: DC plan as per surgery; may need LORENA Problem List - Problems (1) S/P laminectomy with spinal fusion Code(s): Z98.1 - ARTHRODESIS STATUS (2) Fever Code(s): R50.9 - FEVER, UNSPECIFIED Visit type - Emergency Visit Emergency Visit: Yes ED Registration Date: 12/28/17 Care time: The patient presented to the Emergency Department on the above date and was hospitalized for further evaluation of their emergent condition. - New Patient This patient is new to me today: Yes Date on this admission: 01/01/18 - Critical Care Critical Care patient: Yes Total Critical Care Time (in minutes): 36 Critical Care Statement: The care of this patient involved high complexity decision making to prevent further life threatening deterioration of the patient 's condition and/or to evaluate & treat vital organ system(s) failure or risk of failure. <Ashley Block - Last Filed: 01/01/18 18:10> Physical Exam: Agree with the resident note. Vital Signs Temperature 98.9 F 01/01/18 06:00 Pulse Rate 97 H 01/01/18 06:00 Respiratory Rate 12 01/01/18 06:00 Blood Pressure 107/74 01/01/18 06:00 O2 Sat by Pulse Oximetry (%) 100 01/01/18 09:00 CBCD WBC 9.7 K/mm3 (4.0-10.0) 01/01/18 05:45 RBC 3.42 M/mm3 (4.00-5.60) L 01/01/18 05:45 Hgb 10.4 GM/dL (11.7-16.9) L 01/01/18 05:45 Hct 30.0 % (35.4-49) L 01/01/18 05:45 MCV 87.7 fl (80-96) 01/01/18 05:45 MCHC 34.7 g/dl (32.0-35.9) 01/01/18 05:45 RDW 13.0 % (11.9-15.9) 01/01/18 05:45 Plt Count 262 K/MM3 (134-434) 01/01/18 05:45 MPV 8.1 fl (7.5-11.1) 01/01/18 05:45 CMP Sodium 142 mmol/L (136-145) 01/01/18 05:45 Potassium 3.5 mmol/L (3.5-5.1) 01/01/18 05:45 Chloride 101 mmol/L (98-107) 01/01/18 05:45 Carbon Dioxide 29 mmol/L (21-32) 01/01/18 05:45 Anion Gap 12 (8-16) 01/01/18 05:45 BUN 3 mg/dL (7-18) L D 01/01/18 05:45 Creatinine 0.7 mg/dL (0.7-1.3) 01/01/18 05:45 Creat Clearance w eGFR > 60 (>60) 12/31/17 06:15 Random Glucose 98 mg/dL (74-106) 01/01/18 05:45 Calcium 8.1 mg/dL (8.5-10.1) L 01/01/18 05:45 Total Bilirubin 1.0 mg/dL (0.2-1.0) D 12/31/17 06:15 AST 47 U/L (15-37) H 12/31/17 06:15 ALT 20 U/L (12-78) 12/31/17 06:15 Alkaline Phosphatase 77 U/L (45-117) 12/31/17 06:15 Total Protein 5.7 g/dl (6.4-8.2) L 12/31/17 06:15 Albumin 2.9 g/dl (3.4-5.0) L 12/31/17 06:15 CARDIAC ENZYMES Creatine Kinase 741 IU/L (39-308) H 01/01/18 05:45 Troponin I < 0.02 ng/ml (0.00-0.05) 12/29/17 20:00 Current Medications Generic Name Dose Route Start Last Admin Trade Name Freq PRN Reason Stop Dose Admin Acetaminophen 650 mg 01/01/18 12:51 Tylenol - PO Q6H PRN FEVER Diazepam 5 mg 12/29/17 22:24 01/01/18 06:27 Valium - PO 5 mg TID PRN Administration BACK PAIN Gabapentin 300 mg 12/29/17 22:00 01/01/18 10:28 Neurontin - PO 300 mg BID KAMI Administration Nicotine 14 mg 12/29/17 10:00 01/01/18 10:29 Nicoderm Patch - TD 14 mg DAILY KAMI Administration Ondansetron HCl 4 mg 12/28/17 20:57 12/29/17 11:38 Zofran Injection IVPUSH 4 mg Q6H PRN Administration NAUSEA AND/OR VOMITING Ondansetron HCl 4 mg 12/28/17 21:13 Zofran Injection IVPUSH Q6H PRN NAUSEA AND/OR VOMITING Oxycodone HCl 5 mg 12/30/17 10:43 01/01/18 12:31 Roxicodone - PO 5 mg Q3H PRN Administration PAIN LEVEL 1-5 Oxycodone HCl 10 mg 12/30/17 10:43 01/01/18 00:54 Roxicodone - PO 10 mg Q3H PRN Administration PAIN LEVEL 6-10 Oxycodone HCl 10 mg 12/30/17 22:00 01/01/18 10:28 Oxycontin - PO 01/02/18 10:43 10 mg BID KAMI Administration Promethazine HCl 12.5 mg 12/28/17 21:13 12/30/17 07:09 Phenergan Injection - IVPUSH 12.5 mg Q6H PRN Administration NAUSEA-FOR RESCUE AFTER 15 MIN Senna 1 tab 12/29/17 22:00 12/31/17 21:20 Senna - PO 1 tab [facility] Administration Home Medications Medication Instructions Recorded Diazepam [Valium] 5 mg PO HS 12/24/17 Oxycodone HCl/Acetaminophen 1 each PO Q4H PRN 12/24/17 [Percocet 10-325 mg Tablet]
--- NOTE | 2018-01-01 12:14 | PN ---
Teaching Attending Note Name of Resident: Jamshid Encinas ATTENDING PHYSICIAN STATEMENT I saw and evaluated the patient. I reviewed the resident's note and discussed the case with the resident. I agree with the resident's findings and plan as documented. SUBJECTIVE: Patient seen and examined in the ICU. Some pain with movement. Fevers better. Denies cough, nausea or vomiting. No diarrhea. Tolerating clears. OBJECTIVE: Intake & Output 12/29/17 12/30/17 12/31/17 01/01/18 23:59 23:59 23:59 23:59 Intake Total 1550 2440 2870 1980 Output Total 1150 4300 700 1302 Balance 400 -1860 2170 678 Weight 141 lb 9 oz 142 lb 132 lb 11.2 oz 132 lb Last Vital Signs Temp Pulse Resp BP Pulse Ox 98.9 F 97 H 12 107/74 100 01/01/18 06:00 01/01/18 06:00 01/01/18 06:00 01/01/18 06:00 01/01/18 09:00 Active Medications Diazepam (Valium -) 5 mg PO TID PRN PRN Reason: BACK PAIN Last Admin: 01/01/18 06:27 Dose: 5 mg Gabapentin (Neurontin -) 300 mg PO BID [facility] Last Admin: 01/01/18 10:28 Dose: 300 mg Nicotine (Nicoderm Patch -) 14 mg TD DAILY [facility] Last Admin: 01/01/18 10:29 Dose: 14 mg Ondansetron HCl (Zofran Injection) 4 mg IVPUSH Q6H PRN PRN Reason: NAUSEA AND/OR VOMITING Last Admin: 12/29/17 11:38 Dose: 4 mg Ondansetron HCl (Zofran Injection) 4 mg IVPUSH Q6H PRN PRN Reason: NAUSEA AND/OR VOMITING Oxycodone HCl (Roxicodone -) 5 mg PO Q3H PRN PRN Reason: PAIN LEVEL 1-5 Last Admin: 01/01/18 06:27 Dose: 5 mg Oxycodone HCl (Roxicodone -) 10 mg PO Q3H PRN PRN Reason: PAIN LEVEL 6-10 Last Admin: 01/01/18 00:54 Dose: 10 mg Oxycodone HCl (Oxycontin -) 10 mg PO BID [facility] Stop: 01/02/18 10:43 Last Admin: 01/01/18 10:28 Dose: 10 mg Promethazine HCl (Phenergan Injection -) 12.5 mg IVPUSH Q6H PRN PRN Reason: NAUSEA-FOR RESCUE AFTER 15 MIN Last Admin: 12/30/17 07:09 Dose: 12.5 mg Senna (Senna -) 1 tab PO HS [facility] Last Admin: 12/31/17 21:20 Dose: 1 tab Gen: NAD at rest Heart: Regular Lung: decreased breath sounds at the bases Abd: soft, nontender Ext: no edema Laboratory Results - last 24 hr 01/01/18 01/01/18 05:45 05:45 WBC 9.7 RBC 3.42 L Hgb 10.4 L Hct 30.0 L MCV 87.7 MCH 30.4 MCHC 34.7 RDW 13.0 Plt Count 262 MPV 8.1 Neutrophils % 63.2 Lymphocytes % 22.5 D Monocytes % 11.0 H Eosinophils % 2.8 D Basophils % 0.5 Sodium 142 Potassium 3.5 Chloride 101 Carbon Dioxide 29 Anion Gap 12 BUN 3 L D Creatinine 0.7 Random Glucose 98 Calcium 8.1 L Phosphorus 2.6 Magnesium 2.1 ASSESSMENT AND PLAN: Lumbar Spinal Stenosis s/p L4-S1 Laminectomies/Fusions Asthma Smoker - pain control - incentive spirometry - bowel regimen - rehab/PT - monitor drain output - monitor H/H - activity/dennis/PO per surgery - mechanical DVT prophylaxis Dr Murphy Critical care time spent in reviewing chart, evaluating patient and formulating plan - 36 minutes.
[2018-01-01] MEDS: ACETAMINOPHEN 325 MG TABLET (FP) PO PRN (12:45)
--- NOTE | 2018-01-01 18:43 | PN ---
Progress Note (short form) - Note Progress Note: 32M s/p L4, L5, S1 laminectomies, L4-5 & L5-S1 PLIF, L4-S1 PISF POD #4. Pt. sleeping and not interactive at the time of assessment. No acute events. (+) Voiding; (+) Flatus; (-) BM. All labs and vitals reviewed. PE: AAO x 3, NAD. Spine: Dressing C/D/I. (+) HemoVac drain intact & in place. B/L LE sensorimotor & vascular exams at baseline. 32M s/p L4, L5, S1 laminectomies, L4-5 & L5-S1 PLIF, L4-S1 PISF POD #4. -Pain control. -Mechanical DVT PPx. only: NELSY's, SCD's. -Incentive spirometry; aggressive pulmonary toilet. -PT/OT/Rehab, OOB. -WBAT B/L LE. -f/u drain output. -Advance diet as tolerated. -Care per ICU & medical hospitalist team. -Discharge planning. -Will follow. Asad Wilkinson MD (Orthopaedic Surgery).
[2018-01-01] MEDS: SENNOSIDES 8.6MG TABLET (FP) PO SCH (21:18)
[2018-01-02] MEDS: diazePAM 5 MG TABLET PO PRN ×3 (01:43→20:13)
[2018-01-02] MEDS: oxyCODONE HCL 5 MG TABLET PO PRN ×4 (01:44→20:08)
[2018-01-02 06:36] LABS: BASO % 0.6 % (0-2.0); EOS % 5.3 % (0-4.5); HEMATOCRIT 30.3 % (35.4-49); HEMOGLOBIN 10.7 GM/dL (11.7-16.9); LYMPH % 25.1 % (8-40); MCH 30.7 pg (25.7-33.7); MCHC 35.3 g/dl (32.0-35.9); MEAN CELL VOLUME 87.1 fl (80-96); MEAN PLT VOLUME 7.2 fl (7.5-11.1); PLATELET COUNT 355 K/MM3 (134-434); RBC 3.48 M/mm3 (4.00-5.60); RDW 12.9 % (11.9-15.9)
[2018-01-02 06:57] LABS: ANION GAP 4 (8-16); BLOOD UREA NITROGEN 7 mg/dL (7-18); CALCIUM 8.3 mg/dL (8.5-10.1); CHLORIDE 103 mmol/L (98-107); CO2 31 mmol/L (21-32); CREATININE 0.6 mg/dL (0.7-1.3); GLUCOSE,RANDOM 90 mg/dL (74-106); PHOSPHOROUS 4.4 mg/dL (2.5-4.9); POTASSIUM 4.1 mmol/L (3.5-5.1); SODIUM 138 mmol/L (136-145)
[2018-01-02] MEDS ORDERED: PT OWN MED DRAWER 7, Y5N ONE ×2 (07:42→09:37)
[2018-01-02] MEDS: PROMETHAZINE HCL 25 MG/1 ML VIAL IVPUSH PRN (08:43)
[2018-01-02] MEDS: NICOTINE 14 MG/24 HOURS TOPICAL PATCH TD SCH (09:39)
[2018-01-02] MEDS: oxyCODONE HCL 10 MG SUSTAINED ACTING TABLET PO SCH (09:40)
[2018-01-02] MEDS: GABAPENTIN 300 MG CAPSULE (FP) PO SCH ×2 (09:41→21:20)
--- NOTE | 2018-01-02 10:45 | PN ---
Progress Note (short form) - Note Progress Note: PULMONARY/CCM Pt seen and examined in the ICU. Ambulating in unit. Pain controlled. No nausea or vomiting. +flatus but no BM yet. Fever curve trending down. Last Vital Signs Temp Pulse Resp BP Pulse Ox 98.7 F 101 H 16 116/72 95 01/02/18 06:00 01/02/18 06:00 01/02/18 06:00 01/02/18 06:00 01/01/18 21:00 Intake & Output 12/30/17 12/31/17 01/01/18 01/02/18 23:59 23:59 23:59 23:59 Intake Total 2440 2870 2460 240 Output Total 4300 700 2002 902 Balance -1860 2170 458 -662 Weight 64.41 kg 60.192 kg 59.874 kg 59.647 kg Gen: NAD at rest Heart: RRR Lung: decreased breath sounds at the bases Abd: soft, nontender Ext: no edema CBC, BMP 01/02/18 05:50 01/02/18 05:50 Active Medications Acetaminophen (Tylenol -) 650 mg PO Q6H PRN PRN Reason: FEVER Last Admin: 01/01/18 12:45 Dose: 650 mg Diazepam (Valium -) 5 mg PO TID PRN PRN Reason: BACK PAIN Last Admin: 01/02/18 06:14 Dose: 5 mg Gabapentin (Neurontin -) 300 mg PO BID [facility] Last Admin: 01/02/18 09:41 Dose: 300 mg Nicotine (Nicoderm Patch -) 14 mg TD DAILY [facility] Last Admin: 01/02/18 09:39 Dose: 14 mg Ondansetron HCl (Zofran Injection) 4 mg IVPUSH Q6H PRN PRN Reason: NAUSEA AND/OR VOMITING Last Admin: 12/29/17 11:38 Dose: 4 mg Ondansetron HCl (Zofran Injection) 4 mg IVPUSH Q6H PRN PRN Reason: NAUSEA AND/OR VOMITING Oxycodone HCl (Roxicodone -) 5 mg PO Q3H PRN PRN Reason: PAIN LEVEL 1-5 Last Admin: 01/02/18 06:14 Dose: 5 mg Oxycodone HCl (Roxicodone -) 10 mg PO Q3H PRN PRN Reason: PAIN LEVEL 6-10 Last Admin: 01/01/18 00:54 Dose: 10 mg Senna (Senna -) 1 tab PO HS [facility] Last Admin: 01/01/18 21:18 Dose: 1 tab A/P Lumbar Spinal Stenosis s/p L4-S1 Laminectomies/Fusions Asthma Smoker - pain control - incentive spirometry - bowel regimen - rehab/PT - monitor drain output - monitor H/H - activity/dennis/PO per surgery - mechanical DVT prophylaxis - transfer to floor when ok with surgery
--- NOTE | 2018-01-02 17:59 | PN ---
Progress Note (short form) - Note Progress Note: POD#5 In ICU Comfortable Tardy mobilization Neuro fully intact Wound Dry Drain removed New dressing applied. PLAN Muna n MX PT FWBAT Pain Mx D/C planning
--- NOTE | 2018-01-02 19:44 | PN ---
Physical Exam: SUBJECTIVE: Patient seen and examined Patient is feeling better. NAD. OBJECTIVE: Vital Signs Temperature 98.2 F 01/02/18 10:00 Pulse Rate 115 H 01/02/18 18:00 Respiratory Rate 14 01/02/18 18:00 Blood Pressure 121/67 01/02/18 18:00 O2 Sat by Pulse Oximetry (%) 95 01/02/18 09:00 GENERAL: The patient is awake, alert, and fully oriented, in no acute distress. HEAD: Normal with no signs of trauma. EYES: PERRL, extraocular movements intact, sclera anicteric, conjunctiva clear. ENT: Ears normal, oropharynx clear without exudates, moist mucous membranes. NECK: Trachea midline, full range of motion, supple. LUNGS: Breath sounds equal, clear to auscultation bilaterally, no wheezes, no crackles, no accessory muscle use. HEART: Regular rate and rhythm, S1, S2 without murmur, rub or gallop. ABDOMEN: Soft, nontender, nondistended, normoactive bowel sounds, no guarding, no rebound, no hepatosplenomegaly, no masses. EXTREMITIES: 2+ pulses, warm, well-perfused, no edema. NEUROLOGICAL exam: per Dr. Wilkinson. gait not observed. patient is lying in bed. PSYCH: Normal mood, normal affect. SKIN: Warm, dry, normal turgor, no rashes or lesions noted CBCD WBC 9.0 K/mm3 (4.0-10.0) 01/02/18 05:50 RBC 3.48 M/mm3 (4.00-5.60) L 01/02/18 05:50 Hgb 10.7 GM/dL (11.7-16.9) L 01/02/18 05:50 Hct 30.3 % (35.4-49) L 01/02/18 05:50 MCV 87.1 fl (80-96) 01/02/18 05:50 MCHC 35.3 g/dl (32.0-35.9) 01/02/18 05:50 RDW 12.9 % (11.9-15.9) 01/02/18 05:50 Plt Count 355 K/MM3 (134-434) D 01/02/18 05:50 MPV 7.2 fl (7.5-11.1) L D 01/02/18 05:50 CMP Sodium 138 mmol/L (136-145) 01/02/18 05:50 Potassium 4.1 mmol/L (3.5-5.1) 01/02/18 05:50 Chloride 103 mmol/L (98-107) 01/02/18 05:50 Carbon Dioxide 31 mmol/L (21-32) 01/02/18 05:50 Anion Gap 4 (8-16) L 01/02/18 05:50 BUN 7 mg/dL (7-18) D 01/02/18 05:50 Creatinine 0.6 mg/dL (0.7-1.3) L 01/02/18 05:50 Creat Clearance w eGFR > 60 (>60) 12/31/17 06:15 Random Glucose 90 mg/dL (74-106) 01/02/18 05:50 Calcium 8.3 mg/dL (8.5-10.1) L 01/02/18 05:50 Total Bilirubin 1.0 mg/dL (0.2-1.0) D 12/31/17 06:15 AST 47 U/L (15-37) H 12/31/17 06:15 ALT 20 U/L (12-78) 12/31/17 06:15 Alkaline Phosphatase 77 U/L (45-117) 12/31/17 06:15 Total Protein 5.7 g/dl (6.4-8.2) L 12/31/17 06:15 Albumin 2.9 g/dl (3.4-5.0) L 12/31/17 06:15 CARDIAC ENZYMES Creatine Kinase 741 IU/L (39-308) H 01/01/18 05:45 Troponin I < 0.02 ng/ml (0.00-0.05) 12/29/17 20:00 Current Medications Generic Name Dose Route Start Last Admin Trade Name Freq PRN Reason Stop Dose Admin Acetaminophen 650 mg 01/01/18 12:51 01/01/18 12:45 Tylenol - PO 650 mg Q6H PRN Administration FEVER Diazepam 5 mg 12/29/17 22:24 01/02/18 06:14 Valium - PO 5 mg TID PRN Administration BACK PAIN Gabapentin 300 mg 12/29/17 22:00 01/02/18 09:41 Neurontin - PO 300 mg BID [facility] Administration Nicotine 14 mg 12/29/17 10:00 01/02/18 09:39 Nicoderm Patch - TD 14 mg DAILY [facility] Administration Ondansetron HCl 4 mg 12/28/17 20:57 12/29/17 11:38 Zofran Injection IVPUSH 4 mg Q6H PRN Administration NAUSEA AND/OR VOMITING Ondansetron HCl 4 mg 12/28/17 21:13 Zofran Injection IVPUSH Q6H PRN NAUSEA AND/OR VOMITING Oxycodone HCl 5 mg 12/30/17 10:43 01/02/18 06:14 Roxicodone - PO 5 mg Q3H PRN Administration PAIN LEVEL 1-5 Oxycodone HCl 10 mg 12/30/17 10:43 01/02/18 12:49 Roxicodone - PO 10 mg Q3H PRN Administration PAIN LEVEL 6-10 Senna 1 tab 12/29/17 22:00 01/01/18 21:18 Senna - PO 1 tab HS [facility] Administration Home Medications Medication Instructions Recorded Diazepam [Valium] 5 mg PO HS 12/24/17 Oxycodone HCl/Acetaminophen 1 each PO Q4H PRN 12/24/17 [Percocet 10-325 mg Tablet] ASSESSMENT/PLAN: This is a 32 year old male with a past medical history of back pain, s/p POD #5 from L4, L5, S1 laminectomies and L4-5 and L5-S1 instrumented fusion. #POD5 spinal surgery w/ Dr. Wilkinson further management by ortho. DVT prophylaxis: scds; ambulate Disposition: DC plan as per surgery Visit type - Emergency Visit Emergency Visit: Yes ED Registration Date: 12/28/17 Care time: The patient presented to the Emergency Department on the above date and was hospitalized for further evaluation of their emergent condition. - New Patient This patient is new to me today: No - Critical Care Critical Care patient: No - Discharge Referral Referred to [facility] Med P.C.: No
[2018-01-02] MEDS: ACETAMINOPHEN 325 MG TABLET (FP) PO PRN (20:13)
[2018-01-02] MEDS: SENNOSIDES 8.6MG TABLET (FP) PO SCH (21:20)
[2018-01-03] MEDS: ACETAMINOPHEN 325 MG TABLET (FP) PO PRN ×2 (02:30→21:02)
[2018-01-03] MEDS: diazePAM 5 MG TABLET PO PRN ×3 (02:30→21:04)
[2018-01-03] MEDS: oxyCODONE HCL 5 MG TABLET PO PRN ×4 (02:30→21:04)
[2018-01-03] MEDS ORDERED: PT OWN MED DRAWER 7, Y5N ONE (09:18)
[2018-01-03] MEDS: NICOTINE 14 MG/24 HOURS TOPICAL PATCH TD SCH (09:36)
[2018-01-03] MEDS: GABAPENTIN 300 MG CAPSULE (FP) PO SCH ×2 (09:36→21:04)
[2018-01-03] MEDS ORDERED: morphine SULFATE 4 MG/ML VIAL IVPUSH ONE (09:55)
[2018-01-03] MEDS ORDERED: CYCLOBENZAPRINE HCL 5 MG TABLET PO PRN (09:59)
[2018-01-03] MEDS ORDERED: CYCLOBENZAPRINE HCL 10 MG TABLET (FP) PO PRN (10:16)
--- NOTE | 2018-01-03 10:52 | PN ---
Progress Note (short form) - Note Progress Note: PULMONARY/CCM Pt seen and examined in the ICU. Left leg weakness today. No nausea or vomiting. +flatus but no BM yet. No further fevers. Last Vital Signs Temp Pulse Resp BP Pulse Ox 98.1 F 87 17 85/56 98 01/02/18 22:00 01/03/18 05:49 01/03/18 02:00 01/03/18 05:49 01/02/18 21:00 Intake & Output 12/31/17 01/01/18 01/02/18 01/03/18 23:59 23:59 23:59 23:59 Intake Total 2870 2460 940 Output Total 700 2002 902 Balance 2170 458 38 Weight 60.192 kg 59.874 kg 59.647 kg Gen: NAD at rest Heart: RRR Lung: decreased breath sounds at the bases Abd: soft, nontender Ext: no edema CBC, BMP 01/02/18 05:50 01/02/18 05:50 Active Medications Acetaminophen (Tylenol -) 650 mg PO Q6H PRN PRN Reason: FEVER Last Admin: 01/03/18 02:30 Dose: 650 mg Cyclobenzaprine HCl (Flexeril -) 5 mg PO TID PRN PRN Reason: MUSCLE SPASMS Diazepam (Valium -) 5 mg PO TID PRN PRN Reason: BACK PAIN Last Admin: 01/03/18 02:30 Dose: 5 mg Gabapentin (Neurontin -) 300 mg PO BID [facility] Last Admin: 01/03/18 09:36 Dose: 300 mg Nicotine (Nicoderm Patch -) 14 mg TD DAILY [facility] Last Admin: 01/03/18 09:36 Dose: 14 mg Ondansetron HCl (Zofran Injection) 4 mg IVPUSH Q6H PRN PRN Reason: NAUSEA AND/OR VOMITING Oxycodone HCl (Roxicodone -) 5 mg PO Q3H PRN PRN Reason: PAIN LEVEL 1-5 Last Admin: 01/03/18 02:30 Dose: 5 mg Oxycodone HCl (Roxicodone -) 10 mg PO Q3H PRN PRN Reason: PAIN LEVEL 6-10 Last Admin: 01/03/18 08:47 Dose: 10 mg Senna (Senna -) 1 tab PO [facility] Last Admin: 01/02/18 21:20 Dose: 1 tab A/P Lumbar Spinal Stenosis s/p L4-S1 Laminectomies/Fusions Asthma Smoker - CT lumbar spine per surgery - pain control - incentive spirometry - bowel regimen - rehab/PT - monitor drain output - monitor H/H - activity/dennis/PO per surgery - mechanical DVT prophylaxis - transfer to floor when ok with surgery
--- NOTE | 2018-01-03 11:37 | PN ---
Progress Note (short form) - Note Progress Note: C/O sudden L paraspinal pain Feels as if a screw is loose No leg pain Feels Left LE global weakness PLAN Pain mx as discussed Morphine Flexeril and Toradol prn CT lspine arranged
[2018-01-03] MEDS: DOCUSATE SODIUM 100 MG CAPSULE (FP) PO SCH ×2 (14:13→21:05)
--- NOTE | 2018-01-03 17:51 | PN ---
<Joe Santos - Last Filed: 01/03/18 17:56> Physical Exam: SUBJECTIVE: Patient seen and examined at bedside. Upon entering the room, the patient was standing with assistance of walker in obvious pain. The pain persisted even after patient laid back in bed. Pt describes pain at 11/10, centered on left side of the back and associated with mild leg weakness. Dr. Wilkinson at bedside. OBJECTIVE: Vital Signs Period Temp Pulse Resp BP Sys/Piedra Pulse Ox Last 24 Hr 98.1 F 87-116 14-19 85-125/56-83 98-98 GENERAL: The patient is awake, alert, and fully oriented, in moderate distress. HEAD: Normal with no signs of trauma. NECK: Trachea midline, full range of motion, supple. LUNGS: Breath sounds equal, clear to auscultation bilaterally, no wheezes, no crackles, no accessory muscle use. HEART: Regular rate and rhythm, S1, S2 without murmur, rub or gallop. ABDOMEN: Soft, nontender, nondistended, normoactive bowel sounds, no guarding, no rebound, no hepatosplenomegaly, no masses. EXTREMITIES: 2+ pulses, warm, well-perfused, no edema. NEUROLOGICAL: Cranial nerves II through X grossly intact. Normal speech, gait with short steps and with aid of walker. Sensation preserved throughout all dermatomes of the lower extremities. SKIN: Warm, dry, normal turgor, no rashes or lesions noted Active Medications Generic Name Dose Route Start Last Admin Trade Name Freq PRN Reason Stop Dose Admin Acetaminophen 650 mg 01/01/18 12:51 01/03/18 02:30 Tylenol - PO 650 mg Q6H PRN Administration FEVER Cyclobenzaprine HCl 5 mg 01/03/18 10:16 01/03/18 16:34 Flexeril - PO 5 mg TID PRN Administration MUSCLE SPASMS Diazepam 5 mg 12/29/17 22:24 01/03/18 11:52 Valium - PO 5 mg TID PRN Administration BACK PAIN Docusate Sodium 100 mg 01/03/18 14:00 01/03/18 14:13 Colace - PO 100 mg TID [facility] Administration Gabapentin 300 mg 12/29/17 22:00 01/03/18 09:36 Neurontin - PO 300 mg BID [facility] Administration Nicotine 14 mg 12/29/17 10:00 01/03/18 09:36 Nicoderm Patch - TD 14 mg DAILY [facility] Administration Ondansetron HCl 4 mg 12/28/17 21:13 Zofran Injection IVPUSH Q6H PRN NAUSEA AND/OR VOMITING Oxycodone HCl 5 mg 12/30/17 10:43 01/03/18 02:30 Roxicodone - PO 5 mg Q3H PRN Administration PAIN LEVEL 1-5 Oxycodone HCl 10 mg 12/30/17 10:43 01/03/18 16:34 Roxicodone - PO 10 mg Q3H PRN Administration PAIN LEVEL 6-10 Senna 1 tab 12/29/17 22:00 01/02/18 21:20 Senna - PO 1 tab HS [facility] Administration ASSESSMENT/PLAN: This is a 32 yo m w/ no PMH who is POD 3 from L4, L5, S1 laminectomies and L4-5 and L5-S1 instrumented fusion. #POD 6 spinal surgery w/ Dr. Wilkinson -Patient c/o increased pain on the left side -Patient seen and examined w/ Dr. Wilkinson -will order CT Lspine as per Dr. Wilkinson -will order 2mg morphine now -Flexeril TID PRN -consider toradol 30mg PRN if pain persists -management as per Dr. Wilkinson: -Mechanical DVT PPx. only: NELSY's, SCD's. -Incentive spirometry -pulmonary toilet. #FEN -no fluids indicated -monitor lytes -regular diet #Dispo -admit to ICU Visit type - Emergency Visit Emergency Visit: Yes ED Registration Date: 12/28/17 Care time: The patient presented to the Emergency Department on the above date and was hospitalized for further evaluation of their emergent condition. - New Patient This patient is new to me today: No - Critical Care Critical Care patient: Yes Total Critical Care Time (in minutes): 46 Critical Care Statement: The care of this patient involved high complexity decision making to prevent further life threatening deterioration of the patient 's condition and/or to evaluate & treat vital organ system(s) failure or risk of failure. <Ashley Block - Last Filed: 01/03/18 18:52> Physical Exam: Patient seen and examined . Agree with the resident's note. Dr. Wilkinson at bedside who requested pain medication Toradol and Ct of Lspine.
[2018-01-03] MEDS: SENNOSIDES 8.6MG TABLET (FP) PO SCH (21:03)
[2018-01-04] MEDS: ACETAMINOPHEN 325 MG TABLET (FP) PO PRN ×3 (06:57→18:01)
[2018-01-04] MEDS: oxyCODONE HCL 5 MG TABLET PO PRN ×4 (06:58→21:16)
[2018-01-04] MEDS: DOCUSATE SODIUM 100 MG CAPSULE (FP) PO SCH ×3 (06:58→21:14)
[2018-01-04] MEDS ORDERED: PT OWN MED DRAWER 7, Y5N ONE (09:15)
[2018-01-04] MEDS: GABAPENTIN 300 MG CAPSULE (FP) PO SCH ×2 (09:39→21:14)
[2018-01-04] MEDS: NICOTINE 14 MG/24 HOURS TOPICAL PATCH TD SCH (09:39)
--- NOTE | 2018-01-04 12:53 | PN ---
Teaching Attending Note Name of Resident: Jody Toledo ATTENDING PHYSICIAN STATEMENT I saw and evaluated the patient. I reviewed the resident's note and discussed the case with the resident. I agree with the resident's findings and plan as documented. SUBJECTIVE: Feels overall better. Ambulating in room without symptoms. No CP or SOB. Intake & Output 01/01/18 01/02/18 01/03/18 01/04/18 23:59 23:59 23:59 23:59 Intake Total 2460 940 500 Output Total 2001 902 Balance 458 38 500 Weight 132 lb 131 lb 8 oz 136 lb 0.403 oz Last Vital Signs Temp Pulse Resp BP Pulse Ox 98.6 F 111 H 20 122/81 97 01/04/18 10:00 01/04/18 10:00 01/04/18 10:00 01/04/18 10:00 01/04/18 09:00 Active Medications Acetaminophen (Tylenol -) 650 mg PO Q6H PRN PRN Reason: FEVER Last Admin: 01/04/18 12:29 Dose: 650 mg Cyclobenzaprine HCl (Flexeril -) 5 mg PO TID PRN PRN Reason: MUSCLE SPASMS Last Admin: 01/03/18 16:34 Dose: 5 mg Diazepam (Valium -) 5 mg PO TID PRN PRN Reason: BACK PAIN Last Admin: 01/03/18 21:04 Dose: 5 mg Docusate Sodium (Colace -) 100 mg PO TID [facility] Last Admin: 01/04/18 06:58 Dose: 100 mg Gabapentin (Neurontin -) 300 mg PO BID [facility] Last Admin: 01/04/18 09:39 Dose: 300 mg Nicotine (Nicoderm Patch -) 14 mg TD DAILY [facility] Last Admin: 01/04/18 09:39 Dose: 14 mg Ondansetron HCl (Zofran Injection) 4 mg IVPUSH Q6H PRN PRN Reason: NAUSEA AND/OR VOMITING Oxycodone HCl (Roxicodone -) 5 mg PO Q3H PRN PRN Reason: PAIN LEVEL 1-5 Last Admin: 01/03/18 02:30 Dose: 5 mg Oxycodone HCl (Roxicodone -) 10 mg PO Q3H PRN PRN Reason: PAIN LEVEL 6-10 Last Admin: 01/04/18 12:28 Dose: 10 mg Senna (Senna -) 1 tab PO HS [facility] Last Admin: 01/03/18 21:03 Dose: 1 tab Gen: NAD at rest Heart: RRR Lung: Clear Abd: soft, nontender Ext: no edema A/P Lumbar Spinal Stenosis s/p L4-S1 Laminectomies/Fusions Asthma Smoker - pain control - incentive spirometry - bowel regimen - rehab/PT - D/C planning home per Surgery Dr Murphy
[2018-01-04] MEDS ORDERED: POLYETHYLENE GLYCOL 3350 119 GM BTL PO ONE (15:11)
[2018-01-04] MEDS ORDERED: oxyCODONE HCL 5 MG TABLET PO PRN (17:32)
[2018-01-04] MEDS ORDERED: ONDANSETRON 4 MG/2 ML VIAL IVPUSH PRN (17:32)
[2018-01-04] MEDS: diazePAM 5 MG TABLET PO PRN (20:06)
--- NOTE | 2018-01-04 20:15 | PN ---
Physical Exam: SUBJECTIVE: Patient seen and examined in the ICU. Pt standing in room, performing ADLs. Pt reports that back pain is controlled. Pt denies chest pain , sob, abdominal pain, fever, chills. OBJECTIVE: Vital Signs Period Temp Pulse Resp BP Sys/Piedra Pulse Ox Last 24 Hr 97.9 F-99.3 F 88-120 17-22 104-127/65-94 96-97 GENERAL: The patient is awake, alert, and fully oriented, in no acute distress. LUNGS: Breath sounds equal, clear to auscultation bilaterally, no wheezes, no crackles, no accessory muscle use. HEART: Regular rate and rhythm, S1, S2 without murmur, rub or gallop. ABDOMEN: Soft, nontender, nondistended, no guarding. EXTREMITIES: Warm, well-perfused, no edema. PSYCH: Normal mood, normal affect. Active Medications Generic Name Dose Route Start Last Admin Trade Name Freq PRN Reason Stop Dose Admin Acetaminophen 650 mg 01/04/18 17:32 01/04/18 18:01 Tylenol - PO 650 mg Q6H PRN Administration FEVER Cyclobenzaprine HCl 5 mg 01/04/18 17:32 Flexeril - PO Q8H PRN MUSCLE SPASMS Diazepam 5 mg 01/04/18 17:32 01/04/18 20:06 Valium - PO 5 mg Q8H PRN Administration MUSCLE SPASMS Docusate Sodium 100 mg 01/04/18 22:00 Colace - PO TID [facility] Gabapentin 300 mg 01/04/18 22:00 Neurontin - PO BID [facility] Nicotine 14 mg 01/05/18 10:00 Nicoderm Patch - TD DAILY [facility] Ondansetron HCl 4 mg 01/04/18 17:32 Zofran Injection IVPUSH Q6H PRN NAUSEA AND/OR VOMITING Oxycodone HCl 5 mg 01/04/18 17:32 Roxicodone - PO Q3H PRN PAIN LEVEL 1-5 Oxycodone HCl 10 mg 01/04/18 17:32 01/04/18 18:01 Roxicodone - PO 10 mg Q3H PRN Administration PAIN LEVEL 6-10 Polyethylene Glycol 17 gm 01/05/18 10:00 Miralax (For Daily Use) - PO DAILY K[facility] Senna 1 tab 01/04/18 22:00 Senna - PO HS [facility] IMAGIN/1/[address] -> post-surgical changes with no hardware defect noted. Incidental 2mm nonobstructing Left renal calculus noted. ASSESSMENT/PLAN: 32M with PMH of back pain and asthma, presented for back surgery. # Lumbar spinal stenosis - s/p laminectomies by Dr. Wilkinson on 12/28/17 - POD #7 - post-op care per Dr. Wilkinson - pain control with Tylenol prn, Flexeril, Valium prn, Oxycodone prn, and Neurontin - Zofran prn for nausea - incentive spirometer - OOB as tolerated # bowel regimen - continue Colace, Miralax, and Senna # nicotine dependence - continue Nicoderm patch # FEN - Fluids: po - Electrolytes: wnl - Nutrition: regular diet # Prophylaxis - DVT ppx with homer SCDs - deconditioning ppx with PT # dispo [facility]C planning for tomorrow Visit type - Emergency Visit Emergency Visit: Yes ED Registration Date: 12/28/17 Care time: The patient presented to the Emergency Department on the above date and was hospitalized for further evaluation of their emergent condition. - New Patient This patient is new to me today: Yes Date on this admission: 01/04/18 - Critical Care Critical Care patient: Yes Total Critical Care Time (in minutes): 36 Critical Care Statement: The care of this patient involved high complexity decision making to prevent further life threatening deterioration of the patient 's condition and/or to evaluate & treat vital organ system(s) failure or risk of failure.
--- NOTE | 2018-01-04 20:48 | PN ---
<Joe Santos - Last Filed: 01/04/18 20:43> Physical Exam: SUBJECTIVE: Patient seen and examined at bedside. Patient seen ambulating well with walker. Pain controlled today. No events overnight, no new complaints. OBJECTIVE: Vital Signs Period Temp Pulse Resp BP Sys/Piedra Pulse Ox Last 24 Hr 97.9 F-99.3 F 88-120 17-22 104-127/65-94 96-97 GENERAL: The patient is awake, alert, and fully oriented, in no acute distress. HEAD: Normal with no signs of trauma. NECK: Trachea midline, full range of motion, supple. LUNGS: Breath sounds equal, clear to auscultation bilaterally, no wheezes, no crackles, no accessory muscle use. HEART: Regular rate and rhythm, S1, S2 without murmur, rub or gallop. ABDOMEN: Soft, nontender, nondistended, normoactive bowel sounds, no guarding, no rebound, no hepatosplenomegaly, no masses. EXTREMITIES: 2+ pulses, warm, well-perfused, no edema. NEUROLOGICAL: Cranial nerves II through X grossly intact. Normal speech, gait not observed. PSYCH: Normal mood, normal affect. SKIN: Warm, dry, normal turgor, no rashes or lesions noted Active Medications Generic Name Dose Route Start Last Admin Trade Name Freq PRN Reason Stop Dose Admin Acetaminophen 650 mg 01/04/18 17:32 01/04/18 18:01 Tylenol - PO 650 mg Q6H PRN Administration FEVER Cyclobenzaprine HCl 5 mg 01/04/18 17:32 Flexeril - PO Q8H PRN MUSCLE SPASMS Diazepam 5 mg 01/04/18 17:32 01/04/18 20:06 Valium - PO 5 mg Q8H PRN Administration MUSCLE SPASMS Docusate Sodium 100 mg 01/04/18 22:00 Colace - PO TID KAMI Gabapentin 300 mg 01/04/18 22:00 Neurontin - PO BID KAMI Nicotine 14 mg 01/05/18 10:00 Nicoderm Patch - TD DAILY KAMI Ondansetron HCl 4 mg 01/04/18 17:32 Zofran Injection IVPUSH Q6H PRN NAUSEA AND/OR VOMITING Oxycodone HCl 5 mg 01/04/18 17:32 Roxicodone - PO Q3H PRN PAIN LEVEL 1-5 Oxycodone HCl 10 mg 01/04/18 17:32 01/04/18 18:01 Roxicodone - PO 10 mg Q3H PRN Administration PAIN LEVEL 6-10 Polyethylene Glycol 17 gm 01/05/18 10:00 Miralax (For Daily Use) - PO DAILY KAMI Senna 1 tab 01/04/18 22:00 Senna - PO HS KAMI ASSESSMENT/PLAN: This is a 32 yo m w/ no PMH who is POD 3 from L4, L5, S1 laminectomies and L4-5 and L5-S1 instrumented fusion. #POD 7 spinal surgery w/ Dr. Wilkinson -management as per Dr. Wilkinson: -Mechanical DVT PPx. only: NELSY's, SCD's. -Incentive spirometry -pulmonary toilet. -Flexeril TID PRN -consider toradol 30mg PRN if pain persists #FEN -no fluids indicated -monitor lytes -regular diet #Dispo -Patient transferred to floor. -DC planning for tomorrow: Patient will need walker at home Visit type - Emergency Visit Emergency Visit: Yes ED Registration Date: 12/28/17 Care time: The patient presented to the Emergency Department on the above date and was hospitalized for further evaluation of their emergent condition. - New Patient This patient is new to me today: No - Critical Care Critical Care patient: Yes Total Critical Care Time (in minutes): 36 Critical Care Statement: The care of this patient involved high complexity decision making to prevent further life threatening deterioration of the patient 's condition and/or to evaluate & treat vital organ system(s) failure or risk of failure. <Ashley Block - Last Filed: 01/05/18 12:43> Physical Exam: Patient is walking with a walker today , feeling better will be transferred out of the ICU today to Medical floor. CBCD WBC 9.0 K/mm3 (4.0-10.0) 01/02/18 05:50 RBC 3.48 M/mm3 (4.00-5.60) L 01/02/18 05:50 Hgb 10.7 GM/dL (11.7-16.9) L 01/02/18 05:50 Hct 30.3 % (35.4-49) L 01/02/18 05:50 MCV 87.1 fl (80-96) 01/02/18 05:50 MCHC 35.3 g/dl (32.0-35.9) 01/02/18 05:50 RDW 12.9 % (11.9-15.9) 01/02/18 05:50 Plt Count 355 K/MM3 (134-434) D 01/02/18 05:50 MPV 7.2 fl (7.5-11.1) L D 01/02/18 05:50 CMP Sodium 138 mmol/L (136-145) 01/02/18 05:50 Potassium 4.1 mmol/L (3.5-5.1) 01/02/18 05:50 Chloride 103 mmol/L (98-107) 01/02/18 05:50 Carbon Dioxide 31 mmol/L (21-32) 01/02/18 05:50 Anion Gap 4 (8-16) L 01/02/18 05:50 BUN 7 mg/dL (7-18) D 01/02/18 05:50 Creatinine 0.6 mg/dL (0.7-1.3) L 01/02/18 05:50 Creat Clearance w eGFR > 60 (>60) 12/31/17 06:15 Random Glucose 90 mg/dL (74-106) 01/02/18 05:50 Calcium 8.3 mg/dL (8.5-10.1) L 01/02/18 05:50 Total Bilirubin 1.0 mg/dL (0.2-1.0) D 12/31/17 06:15 AST 47 U/L (15-37) H 12/31/17 06:15 ALT 20 U/L (12-78) 12/31/17 06:15 Alkaline Phosphatase 77 U/L (45-117) 12/31/17 06:15 Total Protein 5.7 g/dl (6.4-8.2) L 12/31/17 06:15 Albumin 2.9 g/dl (3.4-5.0) L 12/31/17 06:15 CARDIAC ENZYMES Creatine Kinase 741 IU/L (39-308) H 01/01/18 05:45 Troponin I < 0.02 ng/ml (0.00-0.05) 12/29/17 20:00
[2018-01-04] MEDS: CYCLOBENZAPRINE HCL 10 MG TABLET (FP) PO PRN (21:16)
[2018-01-04] MEDS ORDERED: SENNOSIDES 8.6MG TABLET (FP) PO SCH (22:00)
[2018-01-05] MEDS: oxyCODONE HCL 5 MG TABLET PO PRN ×3 (02:32→11:36)
[2018-01-05] MEDS: diazePAM 5 MG TABLET PO PRN ×2 (05:33→15:22)
[2018-01-05] MEDS: CYCLOBENZAPRINE HCL 10 MG TABLET (FP) PO PRN ×2 (05:33→12:26)
[2018-01-05] MEDS: DOCUSATE SODIUM 100 MG CAPSULE (FP) PO SCH ×2 (05:38→13:50)
[2018-01-05] MEDS: ACETAMINOPHEN 325 MG TABLET (FP) PO PRN (08:51)
[2018-01-05] MEDS ORDERED: NICOTINE 14 MG/24 HOURS TOPICAL PATCH TD SCH (10:00)
[2018-01-05] MEDS ORDERED: POLYETHYLENE GLYCOL 3350 119 GM BTL PO SCH ×2 (10:00)
[2018-01-05] MEDS: GABAPENTIN 300 MG CAPSULE (FP) PO SCH (10:13)
--- NOTE | 2018-01-05 11:18 | HOSP ---
Subjective - Review of Symptoms Subjective: case d/w body corporate manager and social worker assistant. Per case hardener and Dr. Wilkinson: -patient will need a walker at home for safe ambulation -patient will need VNS for dressing changes at home -Patient will benefit from THREAD MARKER for assistance with ADLS D/c planning in progress with workman's comp Physical Examination Vital Signs: Vital Signs Temperature 98.1 F 01/05/18 05:53 Pulse Rate 90 01/05/18 05:53 Respiratory Rate 20 01/05/18 05:53 Blood Pressure 108/70 01/05/18 05:53 O2 Sat by Pulse Oximetry (%) 97 01/04/18 20:37 Labs: CBC, BMP 01/02/18 05:50 01/02/18 05:50
--- NOTE | 2018-01-05 11:21 | HOSP ---
Subjective - Review of Symptoms Subjective: case d/w case finisher and social insurance administrator; As per case management and Dr. Wilkinson: -the patient will need a walker at home for safe ambulation -the patient will need VNS to assist with bandage changes -the patient will benefit from GENERAL SCIENCE TEACHER for assistance with ADLs in the initial period after discharge. d/c planning in progress with workrichard's comp. Physical Examination Vital Signs: Vital Signs Temperature 98.1 F 01/05/18 05:53 Pulse Rate 90 01/05/18 05:53 Respiratory Rate 20 01/05/18 05:53 Blood Pressure 108/70 01/05/18 05:53 O2 Sat by Pulse Oximetry (%) 97 01/04/18 20:37 Labs: CBC, BMP 01/02/18 05:50 01/02/18 05:50 Visit type - Emergency Visit Emergency Visit: Yes ED Registration Date: 12/28/17 Care time: The patient presented to the Emergency Department on the above date and was hospitalized for further evaluation of their emergent condition. - New Patient This patient is new to me today: No - Critical Care Critical Care patient: No
[2018-01-05 14:29] VITALS: BP 122/76; PULSE 117; TEMP 98.9
--- NOTE | 2018-01-05 15:08 | DS ---
Physical Exam: SUBJECTIVE: Patient seen and examined at bedside. Patient has no new complaints. Pain controlled. OBJECTIVE: Vital Signs Period Temp Pulse Resp BP Sys/Piedra Pulse Ox Last 24 Hr 97.9 F-98.9 F 88-117 18-20 108-128/70-94 96-98 PHYSICAL EXAM GENERAL: The patient is awake, alert, and fully oriented, in no acute distress. HEAD: Normal with no signs of trauma. LUNGS: Breath sounds equal, clear to auscultation bilaterally, no wheezes, no crackles, no accessory muscle use. HEART: Regular rate and rhythm, S1, S2 without murmur, rub or gallop. ABDOMEN: Soft, nontender, nondistended, normoactive bowel sounds, no guarding, no rebound, no hepatosplenomegaly, no masses. EXTREMITIES: 2+ pulses, warm, well-perfused, no edema. NEUROLOGICAL: Cranial nerves II through X grossly intact. Normal speech, gait not observed. PSYCH: Normal mood, normal affect. SKIN: Warm, dry, normal turgor, no rashes or lesions noted. LABS HOSPITAL COURSE: Date of Admission:12/28/17 The patient is a 32 yo m w/ no PMH who was admitted to the ICU after laminectomy and spinal fusion. The patient's pain was controlled with morphine, Oxycodone, flexeril, gabapentin and acetaminophen according to Dr. Wilkinson's specifications. He received physical therapy while admitted. The patient improved clinically and was able to ambulate independently with a walker. The patient was discharged home with a walker, VNS for dressing changes and a RECYCLING COLLECTIONS DRIVER for assistance with ADLs. The patient's outpatient pain medications were managed by Dr. Wilkinson's office. The patient was encouraged to follow up with Dr. Wilkinson as well as his PCP within one week of discharge home. Date of Discharge: 01/05/18 Minutes to complete discharge: 120 Discharge Summary Reason For Visit: INTERVERTEBRAL DISC DISORDERS W RADICULOPATHY, LUM Current Active Problems Asthma (Acute) Fever (Acute) S/P laminectomy with spinal fusion (Acute) Condition: Improved - Instructions Diet, Activity, Other Instructions: You were admitted for the treatment of your back surgery. All of your pain medications will be prescribed by Dr. Wilkinson's office. You should follow up with your surgeon, Dr. Wilkinson, within one week of discharge home. You should follow up with your primary care physician within one week of discharge home. If you begin to feel worsening back pain, leg weakness, trouble going to the bathroom or if any of your symptoms get worse, please call your doctor or return to the emergency department. Referrals: Asad Wilkinson MD [Staff Physician] - 1 Week Disposition: HOME - Home Medications Comprehensive Discharge Medication List: Ambulatory Orders Diazepam [Valium] 5 mg PO HS 12/24/17 Oxycodone HCl/Acetaminophen [Percocet 10-325 mg Tablet] 1 each PO Q4H PRN This patient is new to me today: No Emergency Visit: Yes ED Registration Date: 12/28/17 Care time: The patient presented to the Emergency Department on the above date and was hospitalized for further evaluation of their emergent condition. Critical Care patient: No - Discharge Referral Referred to [facility] Med P.C.: No
--- NOTE | 2018-01-06 10:23 | EKG ---
Test Reason : Blood Pressure : / mmHG Vent. Rate : 090 BPM Atrial Rate : 090 BPM P-R Int : 126 ms QRS Dur : 082 ms QT Int : 336 ms P-R-T Axes : 071 041 052 degrees QTc Int : 411 ms NORMAL SINUS RHYTHM WITH SINUS ARRHYTHMIA NORMAL ECG NO PREVIOUS ECGS AVAILABLE Confirmed by CARLOS ALFONSO MD ([id number]) on 01/06/2018 10:23:02 AM Referred By: Confirmed By:CARLOS ALFONSO MD
== END 2018-01-05 15:28 | disposition home or self-care (01) | DRG 304 ==
LOC: JSAMEDAYSX 10:54 → JICU 22:39 → J6S 01-04 16:56
PROVIDERS: ADMIT Orthopaedic Surgery Orthopaedic Surgery of the Spine; ATTEND Internal Medicine
PROC: 0SG30AJ Fusion of Lumbosacral Joint with Interbody Fusion Device, Posterior Approach, Anterior Column, Open Approach (ICD-10-PCS; 2017-12-28)
PROC: 4A11X4G Monitoring of Peripheral Nervous Electrical Activity, Intraoperative, External Approach (ICD-10-PCS; 2017-12-28)
PROC: 0SB40ZZ Excision of Lumbosacral Disc, Open Approach (ICD-10-PCS; principal; 2017-12-28 14:00)
DX: M51.27 Other intervertebral disc displacement, lumbosacral region (principal); M48.07 Spinal stenosis, lumbosacral region; J45.909 Unspecified asthma, uncomplicated; F17.200 Nicotine dependence, unspecified, uncomplicated; F32.9 Major depressive disorder, single episode, unspecified; F12.10 Cannabis abuse, uncomplicated; R50.9 Fever, unspecified; D72.829 Elevated white blood cell count, unspecified
CPT/HCPCS: 36415; 71045-TC-FY; 72131-TC; 76000-TC-FY; 80048; 80053; 81003; 81015; 82550; 82553; 83036; 83735; 84100; 84484; 85025; 85027; 86850; 86900; 86901; 87040; 88304-TC; 93005; 93010; 94760; 97116-GP; 97161-GP; J0131; J1170; J1644

== ENCOUNTER 2021-07-02 04:12 | Inpatient (IN) | payer OTHER ==
[2021-07-02] MEDS ORDERED: GENTAMICIN SO4 80 MG/2 ML VIAL ONE (07:24)
[2021-07-02] MEDS ORDERED: BUPIVACAINE LIPOSOME/PF (EXPAREL) 266 MG/20 ML VIAL ONE (07:24)
[2021-07-02] MEDS ORDERED: BUPIVACAINE HCL/PF 0.25% (2.5MG/ML) 10 ML VIAL ONE (07:24)
[2021-07-02] MEDS ORDERED: THROMBIN (BOVINE) 20,000 UNIT VIAL TP ONE (07:25)
[2021-07-02] MEDS ORDERED: ceFAZolin SODIUM 1 GM VIAL ONE ×5 (07:59→20:58)
[2021-07-02] MEDS ORDERED: LIDOCAINE HCL/PF 2% SDV 5ML VIAL ONE (07:59)
[2021-07-02] MEDS ORDERED: fentaNYL CITRATE 250 MCG/5 ML VIAL ONE (08:00)
[2021-07-02] MEDS ORDERED: PROPOFOL 20 ML ONE ×3 (08:00→08:03)
[2021-07-02] MEDS ORDERED: ROCURONIUM BROMIDE 50 MG/5 ML SYRINGE ONE ×2 (08:00→09:36)
[2021-07-02] MEDS ORDERED: MIDAZOLAM HCL 2 MG/2 ML SINGLE DOSE VIAL ONE ×2 (08:00)
[2021-07-02] MEDS ORDERED: TRANEXAMIC ACID 1000 MG/10 ML VIAL ONE ×2 (08:01→10:27)
[2021-07-02] MEDS ORDERED: SEVOFLURANE 250 ML BTL ONE (08:05)
[2021-07-02] MEDS ORDERED: VANCOMYCIN 1,000 MG VIAL (RESTRICTED TO ID ONLY) IVPB ONE (08:28)
[2021-07-02] MEDS ORDERED: ceFAZolin SODIUM 1 GM VIAL IVPB ONE (08:28)
[2021-07-02] MEDS ORDERED: VANCOMYCIN 1,000 MG VIAL (RESTRICTED TO ID ONLY) ONE (08:40)
[2021-07-02] MEDS ORDERED: ONDANSETRON 4 MG/2 ML VIAL ONE (09:13)
[2021-07-02] MEDS ORDERED: DEXAMETHASONE SOD PHOSPHATE 4 MG/1 ML VIAL ONE (09:13)
[2021-07-02] MEDS ORDERED: THROMBIN (BOVINE) 5,000 UNIT VIAL TP ONE (09:14)
[2021-07-02] MEDS ORDERED: BUPIVACAINE LIPOSOME/PF (EXPAREL) 266 MG/20 ML VIAL NR ONE (10:19)
[2021-07-02] MEDS ORDERED: BUPIVACAINE HCL/PF 0.25% (2.5MG/ML) 10 ML VIAL IJ ONE (10:20)
[2021-07-02] MEDS ORDERED: GLYCOPYRROLATE 0.2 MG/1 ML VIAL ONE (10:21)
[2021-07-02] MEDS ORDERED: NEOSTIGMINE METHYLSULFATE 0.5 MG/1 ML - 10 ML MDV ONE (10:22)
[2021-07-02] MEDS ORDERED: ONDANSETRON 4 MG/2 ML VIAL IVPUSH PRN ×2 (11:33→11:44)
[2021-07-02] MEDS ORDERED: ACETAMINOPHEN 1000 MG/100 ML VIAL IVPB PRN ×2 (11:33→11:44)
[2021-07-02] MEDS ORDERED: oxyCODONE HCL 5 MG TABLET PO PRN (11:44)
[2021-07-02] MEDS ORDERED: diazePAM CARPU-JECT 10 MG/2 ML DISP.SYRIN IVPUSH PRN (11:44)
[2021-07-02] MEDS ORDERED: LACTATED RINGERS SOLUTION 1,000 ML IV SCH (11:45)
[2021-07-02] MEDS ORDERED: ACETAMINOPHEN INJECTION 100 ML IVPB ONE (11:46)
[2021-07-02] MEDS ORDERED: ACETAMINOPHEN 1000 MG/100 ML VIAL IVPB ONE (11:47)
[2021-07-02] MEDS ORDERED: ceFAZolin 2 GRAM PREMIX BAG IVPB ONE (13:00)
[2021-07-02] MEDS ORDERED: CEFAZOLIN 2 GM in DEXTROSE 5%-WATER - 50 ML IVPB SCH ×2 (13:00→13:16)
[2021-07-02] MEDS: LACTATED RINGERS SOLUTION 1,000 ML IV SCH ×2 (14:21→17:50)
[2021-07-02] MEDS: HYDROmorphone HCl 2 MG/ML VIAL SQ PRN (14:33)
[2021-07-02] MEDS ORDERED: DEXTROSE 5%-WATER - 50 ML IVPB ONE ×2 (18:39→20:58)
[2021-07-02] MEDS: oxyCODONE HCL 5 MG TABLET PO PRN (18:40)
[2021-07-02] MEDS: CEFAZOLIN 2 GM in DEXTROSE 5%-WATER - 50 ML IVPB SCH ×2 (19:49→21:04)
[2021-07-02] MEDS: MELATONIN 1 MG TABLET PO SCH (22:48)
[2021-07-03] MEDS: HYDROmorphone HCl 2 MG/ML VIAL SQ PRN ×3 (01:35→14:48)
[2021-07-03] MEDS: LACTATED RINGERS SOLUTION 1,000 ML IV SCH ×3 (02:39→21:12)
[2021-07-03 07:49] LABS: HEMATOCRIT 34.8 % (35.4-49); HEMOGLOBIN 11.9 GM/dL (11.7-16.9); MCH 29.2 pg (25.7-33.7); MCHC 34.1 g/dl (32.0-35.9); MEAN CELL VOLUME 85.6 fl (80-96); MEAN PLT VOLUME 7.4 fl (7.5-11.1); PLATELET COUNT 323 10^3/uL (134-434); RBC 4.06 M/mm3 (4.00-5.60); RDW 13.3 % (11.9-15.9); WHITE BLOOD COUNT 18.6 K/mm3 (4.0-10.0)
[2021-07-03 08:21] LABS: BLOOD UREA NITROGEN 6.3 mg/dL (7-18)
[2021-07-03 08:23] LABS: CALCIUM 8.7 mg/dL (8.5-10.1); MAGNESIUM 2.1 mg/dL (1.8-2.4)
[2021-07-03 08:24] LABS: CREATININE 0.7 mg/dL (0.55-1.3)
[2021-07-03 08:25] LABS: PHOSPHOROUS 3.6 mg/dL (2.5-4.9)
[2021-07-03 19:48] VITALS: BMI 22.6
[2021-07-03] MEDS: MELATONIN 1 MG TABLET PO SCH (21:10)
[2021-07-03] MEDS: oxyCODONE HCL 5 MG TABLET PO PRN (23:23)
[2021-07-04] MEDS: oxyCODONE HCL 5 MG TABLET PO PRN (05:01)
[2021-07-04 08:20] LABS: INR 0.99 (0.83-1.09); PROTHROMBIN TIME (PATIENT) 12.2 SEC (9.7-13.0)
[2021-07-04 08:22] LABS: ACTIVATED PTT 25.8 SECONDS (25.2-36.5)
[2021-07-04 08:55] LABS: BASO % 0.3 % (0-2.0); EOS % 1.3 % (0-4.5); HEMOGLOBIN 12.1 GM/dL (11.7-16.9); LYMPH % 17.9 % (8-40); MCH 29.2 pg (25.7-33.7); MCHC 33.6 g/dl (32.0-35.9); MEAN PLT VOLUME 7.8 fl (7.5-11.1); MONO % 11.1 % (3.8-10.2); NEUT % 69.4 % (42.8-82.8); PLATELET COUNT 316 10^3/uL (134-434); RBC 4.14 M/mm3 (4.00-5.60); RDW 13.5 % (11.9-15.9); WHITE BLOOD COUNT 14.1 K/mm3 (4.0-10.0)
[2021-07-04 09:52] LABS: CALCIUM 8.7 mg/dL (8.5-10.1)
[2021-07-04 09:53] LABS: BLOOD UREA NITROGEN 6.6 mg/dL (7-18); MAGNESIUM 2.1 mg/dL (1.8-2.4)
[2021-07-04 09:54] LABS: ALBUMIN 3.1 g/dl (3.4-5.0)
[2021-07-04 09:55] LABS: BILIRUBIN,TOTAL 0.5 mg/dL (0.2-1)
[2021-07-04 09:56] LABS: CREATININE 0.7 mg/dL (0.55-1.3)
[2021-07-04 09:59] LABS: PHOSPHOROUS 3.8 mg/dL (2.5-4.9)
[2021-07-04] MEDS ORDERED: diazePAM 2 MG TABLET PO PRN (11:36)
[2021-07-04] MEDS ORDERED: ACETAMINOPHEN 325 MG TABLET (FP) PO PRN (11:43)
[2021-07-04 17:11] VITALS: BP 115/61; PULSE 81; TEMP 98.4
== END 2021-07-04 17:45 | disposition home or self-care (01) | DRG 304 ==
LOC: JASUSAT 04:12 → SUATTDRO 04:12 → J8W 14:08 → JASUSAT 14:08 → J8W 07-03 18:25
PROC: 0SG1071 Fusion of 2 or more Lumbar Vertebral Joints with Autologous Tissue Substitute, Posterior Approach, Posterior Column, Open Approach (ICD-10-PCS; 2021-07-02)
PROC: 0SP304Z Removal of Internal Fixation Device from Lumbosacral Joint, Open Approach (ICD-10-PCS; 2021-07-02)
PROC: 0SG3071 Fusion of Lumbosacral Joint with Autologous Tissue Substitute, Posterior Approach, Posterior Column, Open Approach (ICD-10-PCS; 2021-07-02)
PROC: 07DR0ZZ Extraction of Iliac Bone Marrow, Open Approach (ICD-10-PCS; 2021-07-02)
PROC: 0SP004Z Removal of Internal Fixation Device from Lumbar Vertebral Joint, Open Approach (ICD-10-PCS; principal; 2021-07-02 08:00)
DX: M48.062 Spinal stenosis, lumbar region with neurogenic claudication (principal); M48.07 Spinal stenosis, lumbosacral region; M47.896 Other spondylosis, lumbar region; M47.897 Other spondylosis, lumbosacral region; M71.58 Other bursitis, not elsewhere classified, other site
CPT/HCPCS: 36415; 70450-TC; 71045-TC-FY; 76000-TC-FY; 80048; 80053; 83735; 84100; 85025; 85027; 85610; 85730; 86850; 86900; 86901; 86922; 93005; 93010; 94010; 94760; 97116-GP; 97161-GP; J0131